=== PATIENT | female | born 1975 | race Caucasian/White ===

== ENCOUNTER 2022-04-30 13:06 | Emergency (ER) | payer OTHER, SELFPAY ==
[2022-04-30] VITALS (51 sets, daily range): BP systolic 102–146; BP diastolic 62–94; PULSE 97–124; RESP 18–21; TEMP 36.6–37.4; O2SAT 92–100; BMI 17.2
--- NOTE | 2022-04-30 14:54 | ED_ITS ---
HPI - General Adult General Time Seen by Provider: 14:54 <Sandy Braga MD - Last Filed: 04/30/22 21:17> Date Seen: 04/30/22 <Sandy Braga MD - Last Filed: 04/30/22 21:17> Chief complaint: Abdominal Pain <Sandy Braga MD - Last Filed: 04/30/22 21:17> Stated complaint: Abdominal pain <Sandy Braga MD - Last Filed: 04/30/22 21:17> Time Seen by Provider: 04/30/22 14:46 <Sandy Braga MD - Last Filed: 04/30/22 21:17> Source: patient and RN notes reviewed <Sandy Braga MD - Last Filed: 04/30/22 21:17> Mode of arrival: ambulatory <Sandy Braga MD - Last Filed: 04/30/22 21:17> Limitations: no limitations <Sandy Braga MD - Last Filed: 04/30/22 21:17> History of Present Illness HPI narrative: This 46-year-old female is here with her significant other with abdominal pain. Patient has liver cancer, has been off chemotherapy for a couple of weeks awaiting possible entrance to a trial. Her bilirubin reportedly was starting to elevate and she was becoming jaundice. She had a stent placed via ERCP with improvement of the jaundice at [facility]. The procedure reportedly went very well, only took 15 minutes. Since that time she has had increasing right abdominal pain. She complains of pain with breathing on that side. Initially she was feeling a bit better after the procedure, appetite was better. Now she has had some more nausea. She has not had any fevers but since chemotherapy is started, do think that maybe she has precipitated menopause as she does have hot flashes and night sweats. This predated the stent placement. She contacted her Oncology and they recommended going to the ER to get imaging. They stated it would take them a few days to get her in for imaging per their report. She tried some tramadol at home which she had for pain but does not typically use, last use at 10:15 a.m. and barely took the edge off. She has had some emesis with fentanyl and dilaudid postprocedure. She is not a smoker but was exposed to secondhand smoke through her dad. Prior to being diagnosed with liver cancer she was an avid runner. She is tearful talking about this, states she is really lead a healthy life. She states she really only can comfortably lying her left side. Since the procedure was done, she has not been able to lie on her right side anymore. She states it hurts with breathing but she is not necessarily short of breath. It hurts on the right side with breathing. She has become more nauseated since the procedure, no vomiting. Originally felt like her appetite improved when it was 1st done. <Sandy Braga MD - Last Filed: 04/30/22 21:17> Related Data Allergies/adverse reactions: Allergies Allergy/AdvReac Type Severity Reaction Status Date / Time amoxicillin AdvReac Severe Anaphylaxis Verified 04/30/22 17:26 <Sandy Braga MD - Last Filed: 04/30/22 21:17> Review of Systems Status of ROS: Reports: 10 or more systems reviewed and unremarkable except as noted in History and below <Sandy Braga MD - Last Filed: 0 04/30/22 21:17> Exam Const: Vital Signs, click to edit/add: Vital Signs - 24 hr 05/01/22 02:00 05/01/22 02:02 05/01/22 02:15 Pulse Rate 103 H 100 96 Blood Pressure 122/78 Pulse Oximetry 97 98 96 05/01/22 02:30 05/01/22 02:45 05/01/22 03:00 Pulse Rate 95 101 H 94 Blood Pressure Pulse Oximetry 97 95 96 05/01/22 03:02 05/01/22 03:15 05/01/22 03:30 Pulse Rate 94 95 96 Blood Pressure 116/72 Pulse Oximetry 97 97 98 05/01/22 03:45 05/01/22 04:00 05/01/22 04:01 Pulse Rate 102 H 100 100 Blood Pressure 123/76 Pulse Oximetry 97 99 99 05/01/22 04:15 05/01/22 04:30 05/01/22 04:45 Pulse Rate 102 H 101 H 100 Blood Pressure Pulse Oximetry 98 99 99 05/01/22 05:00 05/01/22 05:01 05/01/22 05:15 Pulse Rate 106 H 105 H 102 H Blood Pressure 111/65 Pulse Oximetry 100 99 99 05/01/22 05:30 05/01/22 05:45 05/01/22 06:00 Pulse Rate 101 H 101 H 100 Blood Pressure Pulse Oximetry 97 96 97 05/01/22 06:01 05/01/22 06:15 05/01/22 06:28 Pulse Rate 99 109 H 106 H Blood Pressure 105/57 L 135/79 Pulse Oximetry 97 98 100 05/01/22 06:30 05/01/22 06:45 05/01/22 07:00 Pulse Rate 105 H 107 H 98 Blood Pressure Pulse Oximetry 100 97 95 05/01/22 07:02 05/01/22 07:15 05/01/22 07:30 Pulse Rate 98 96 96 Blood Pressure 112/68 Pulse Oximetry 95 95 95 05/01/22 07:45 05/01/22 08:00 05/01/22 08:02 Pulse Rate 92 95 94 Blood Pressure 103/64 Pulse Oximetry 96 96 96 05/01/22 08:15 05/01/22 08:30 05/01/22 08:45 Pulse Rate 104 H 92 94 Blood Pressure Pulse Oximetry 96 97 97 05/01/22 09:00 05/01/22 09:01 05/01/22 09:15 Pulse Rate 98 103 H 109 H Blood Pressure 117/79 Pulse Oximetry 96 99 100 05/01/22 09:36 05/01/22 09:45 05/01/22 10:00 Pulse Rate 98 97 101 H Blood Pressure Pulse Oximetry 99 97 98 05/01/22 10:03 05/01/22 10:29 05/01/22 10:30 Pulse Rate 105 H 98 Blood Pressure 140/81 H Pulse Oximetry 100 100 05/01/22 10:45 05/01/22 11:00 05/01/22 11:01 Pulse Rate 97 101 H 104 H Blood Pressure 124/77 Pulse Oximetry 99 99 94 05/01/22 11:15 05/01/22 11:30 05/01/22 11:45 Pulse Rate 106 H 100 101 H Blood Pressure Pulse Oximetry 100 98 98 05/01/22 12:00 05/01/22 12:02 05/01/22 12:22 Pulse Rate 103 H 103 H 109 H Blood Pressure 111/66 Pulse Oximetry 98 98 99 05/01/22 12:30 Pulse Rate 106 H Blood Pressure Pulse Oximetry 96 <Sandy Braga MD - Last Filed: 04/30/22 21:17> Vital Signs, click to edit/add: Vital Signs - 24 hr 05/01/22 02:00 05/01/22 02:02 05/01/22 02:15 Pulse Rate 103 H 100 96 Blood Pressure 122/78 Pulse Oximetry 97 98 96 05/01/22 02:30 05/01/22 02:45 05/01/22 03:00 Pulse Rate 95 101 H 94 Blood Pressure Pulse Oximetry 97 95 96 05/01/22 03:02 05/01/22 03:15 05/01/22 03:30 Pulse Rate 94 95 96 Blood Pressure 116/72 Pulse Oximetry 97 97 98 05/01/22 03:45 05/01/22 04:00 05/01/22 04:01 Pulse Rate 102 H 100 100 Blood Pressure 123/76 Pulse Oximetry 97 99 99 05/01/22 04:15 05/01/22 04:30 05/01/22 04:45 Pulse Rate 102 H 101 H 100 Blood Pressure Pulse Oximetry 98 99 99 05/01/22 05:00 05/01/22 05:01 05/01/22 05:15 Pulse Rate 106 H 105 H 102 H Blood Pressure 111/65 Pulse Oximetry 100 99 99 05/01/22 05:30 05/01/22 05:45 05/01/22 06:00 Pulse Rate 101 H 101 H 100 Blood Pressure Pulse Oximetry 97 96 97 05/01/22 06:01 05/01/22 06:15 05/01/22 06:28 Pulse Rate 99 109 H 106 H Blood Pressure 105/57 L 135/79 Pulse Oximetry 97 98 100 05/01/22 06:30 05/01/22 06:45 05/01/22 07:00 Pulse Rate 105 H 107 H 98 Blood Pressure Pulse Oximetry 100 97 95 05/01/22 07:02 05/01/22 07:15 05/01/22 07:30 Pulse Rate 98 96 96 Blood Pressure 112/68 Pulse Oximetry 95 95 95 05/01/22 07:45 05/01/22 08:00 05/01/22 08:02 Pulse Rate 92 95 94 Blood Pressure 103/64 Pulse Oximetry 96 96 96 05/01/22 08:15 05/01/22 08:30 05/01/22 08:45 Pulse Rate 104 H 92 94 Blood Pressure Pulse Oximetry 96 97 97 05/01/22 09:00 05/01/22 09:01 05/01/22 09:15 Pulse Rate 98 103 H 109 H Blood Pressure 117/79 Pulse Oximetry 96 99 100 05/01/22 09:36 05/01/22 09:45 05/01/22 10:00 Pulse Rate 98 97 101 H Blood Pressure Pulse Oximetry 99 97 98 05/01/22 10:03 05/01/22 10:29 05/01/22 10:30 Pulse Rate 105 H 98 Blood Pressure 140/81 H Pulse Oximetry 100 100 05/01/22 10:45 05/01/22 11:00 05/01/22 11:01 Pulse Rate 97 101 H 104 H Blood Pressure 124/77 Pulse Oximetry 99 99 94 05/01/22 11:15 05/01/22 11:30 05/01/22 11:45 Pulse Rate 106 H 100 101 H Blood Pressure Pulse Oximetry 100 98 98 05/01/22 12:00 05/01/22 12:02 05/01/22 12:22 Pulse Rate 103 H 103 H 109 H Blood Pressure 111/66 Pulse Oximetry 98 98 99 05/01/22 12:30 Pulse Rate 106 H Blood Pressure Pulse Oximetry 96 <Justin Sorenson MD - Last Filed: 05/04/22 00:58> Vital Signs, click to edit/add: Vital Signs - 24 hr 05/01/22 02:00 05/01/22 02:02 05/01/22 02:15 Pulse Rate 103 H 100 96 Blood Pressure 122/78 Pulse Oximetry 97 98 96 05/01/22 02:30 05/01/22 02:45 05/01/22 03:00 Pulse Rate 95 101 H 94 Blood Pressure Pulse Oximetry 97 95 96 05/01/22 03:02 05/01/22 03:15 05/01/22 03:30 Pulse Rate 94 95 96 Blood Pressure 116/72 Pulse Oximetry 97 97 98 05/01/22 03:45 01/13/23 04:00 05/01/22 04:01 Pulse Rate 102 H 100 100 Blood Pressure 123/76 Pulse Oximetry 97 99 99 05/01/22 04:15 05/01/22 04:30 05/01/22 04:45 Pulse Rate 102 H 101 H 100 Blood Pressure Pulse Oximetry 98 99 99 05/01/22 05:00 05/01/22 05:01 05/01/22 05:15 Pulse Rate 106 H 105 H 102 H Blood Pressure 111/65 Pulse Oximetry 100 99 99 05/01/22 05:30 05/01/22 05:45 05/01/22 06:00 Pulse Rate 101 H 101 H 100 Blood Pressure Pulse Oximetry 97 96 97 05/01/22 06:01 05/01/22 06:15 05/01/22 06:28 Pulse Rate 99 109 H 106 H Blood Pressure 105/57 L 135/79 Pulse Oximetry 97 98 100 05/01/22 06:30 05/01/22 06:45 05/01/22 07:00 Pulse Rate 105 H 107 H 98 Blood Pressure Pulse Oximetry 100 97 95 05/01/22 07:02 05/01/22 07:15 05/01/22 07:30 Pulse Rate 98 96 96 Blood Pressure 112/68 Pulse Oximetry 95 95 95 05/01/22 07:45 05/01/22 08:00 05/01/22 08:02 Pulse Rate 92 95 94 Blood Pressure 103/64 Pulse Oximetry 96 96 96 05/01/22 08:15 05/01/22 08:30 05/01/22 08:45 Pulse Rate 104 H 92 94 Blood Pressure Pulse Oximetry 96 97 97 05/01/22 09:00 05/01/22 09:01 05/01/22 09:15 Pulse Rate 98 103 H 109 H Blood Pressure 117/79 Pulse Oximetry 96 99 100 05/01/22 09:36 05/01/22 09:45 05/01/22 10:00 Pulse Rate 98 97 101 H Blood Pressure Pulse Oximetry 99 97 98 05/01/22 10:03 05/01/22 10:29 05/01/22 10:30 Pulse Rate 105 H 98 Blood Pressure 140/81 H Pulse Oximetry 100 100 05/01/22 10:45 05/01/22 11:00 05/01/22 11:01 Pulse Rate 97 101 H 104 H Blood Pressure 124/77 Pulse Oximetry 99 99 94 05/01/22 11:15 05/01/22 11:30 05/01/22 11:45 Pulse Rate 106 H 100 101 H Blood Pressure Pulse Oximetry 100 98 98 05/01/22 12:00 05/01/22 12:02 05/01/22 12:22 Pulse Rate 103 H 103 H 109 H Blood Pressure 111/66 Pulse Oximetry 98 98 99 05/01/22 12:30 Pulse Rate 106 H Blood Pressure Pulse Oximetry 96 <Kayode Alvarado MD - Last Filed: 05/02/22 01:51> Vital Signs, click to edit/add: Vital Signs - 24 hr 05/01/22 02:00 05/01/22 02:02 05/01/22 02:15 Pulse Rate 103 H 100 96 Blood Pressure 122/78 Pulse Oximetry 97 98 96 05/01/22 02:30 05/01/22 02:45 05/01/22 03:00 Pulse Rate 95 101 H 94 Blood Pressure Pulse Oximetry 97 95 96 05/01/22 03:02 05/01/22 03:15 05/01/22 03:30 Pulse Rate 94 95 96 Blood Pressure 116/72 Pulse Oximetry 97 97 98 05/01/22 03:45 05/01/22 04:00 05/01/22 04:01 Pulse Rate 102 H 100 100 Blood Pressure 123/76 Pulse Oximetry 97 99 99 05/01/22 04:15 05/01/22 04:30 05/01/22 04:45 Pulse Rate 102 H 101 H 100 Blood Pressure Pulse Oximetry 98 99 99 05/01/22 05:00 05/01/22 05:01 05/01/22 05:15 Pulse Rate 106 H 105 H 102 H Blood Pressure 111/65 Pulse Oximetry 100 99 99 05/01/22 05:30 05/01/22 05:45 05/01/22 06:00 Pulse Rate 101 H 101 H 100 Blood Pressure Pulse Oximetry 97 96 97 05/01/22 06:01 05/01/22 06:15 05/01/22 06:28 Pulse Rate 99 109 H 106 H Blood Pressure 105/57 L 135/79 Pulse Oximetry 97 98 100 05/01/22 06:30 05/01/22 06:45 05/01/22 07:00 Pulse Rate 105 H 107 H 98 Blood Pressure Pulse Oximetry 100 97 95 05/01/22 07:02 05/01/22 07:15 05/01/22 07:30 Pulse Rate 98 96 96 Blood Pressure 112/68 Pulse Oximetry 95 95 95 05/01/22 07:45 05/01/22 08:00 05/01/22 08:02 Pulse Rate 92 95 94 Blood Pressure 103/64 Pulse Oximetry 96 96 96 05/01/22 08:15 05/01/22 08:30 05/01/22 08:45 Pulse Rate 104 H 92 94 Blood Pressure Pulse Oximetry 96 97 97 05/01/22 09:00 05/01/22 09:01 05/01/22 09:15 Pulse Rate 98 103 H 109 H Blood Pressure 117/79 Pulse Oximetry 96 99 100 05/01/22 09:36 05/01/22 09:45 05/01/22 10:00 Pulse Rate 98 97 101 H Blood Pressure Pulse Oximetry 99 97 98 05/01/22 10:03 05/01/22 10:29 05/01/22 10:30 Pulse Rate 105 H 98 Blood Pressure 140/81 H Pulse Oximetry 100 100 05/01/22 10:45 05/01/22 11:00 05/01/22 11:01 Pulse Rate 97 101 H 104 H Blood Pressure 124/77 Pulse Oximetry 99 99 94 05/01/22 11:15 05/01/22 11:30 05/01/22 11:45 Pulse Rate 106 H 100 101 H Blood Pressure Pulse Oximetry 100 98 98 05/01/22 12:00 05/01/22 12:02 05/01/22 12:22 Pulse Rate 103 H 103 H 109 H Blood Pressure 111/66 Pulse Oximetry 98 98 99 05/01/22 12:30 Pulse Rate 106 H Blood Pressure Pulse Oximetry 96 <Chanel Krishnamurthy MD - Last Filed: 05/01/22 14:20> Documenting provider has reviewed patient's vital signs: yes <Sandy Braga MD - Last Filed: 04/30/22 21:17> Common normals: no apparent distress, oriented x3, no limitations and alert <Sandy Braga MD - Last Filed: 04/30/22 21:17> General appearance: cooperative, comfortable and frail appearing <Sandy Braga MD - Last Filed: 04/30/22 21:17> Nutritional appearance: thin <Sandy Braga MD - Last Filed: 04/30/22 21:17> HENMT: Common normals: normocephalic, head/scalp atraumatic, hearing grossly normal bilaterally and external ears normal <Sandy Braga MD - Last Filed: 04/30/22 21:17> Head and scalp: normocephalic and atraumatic <Sandy Braga MD - Last Filed: 04/30/22 21:17> External ear: external ears normal <Sandy Braga MD - Last Filed: 04/30/22 21:17> Eye: Common normals: PERRL, EOMs intact bilaterally and conjunctivae normal <Sandy Braga MD - Last Filed: 04/30/22 21:17> Conjunctiva: conjunctiva(e) normal <Sandy Braga MD - Last Filed: 04/30/22 21:17> Pupil: PERRL <Sandy Braga MD - Last Filed: 04/30/22 21:17> Other: Lighting was not great in the room, 1 bank of lights were not on but I do wonder if there is maybe a little scleral icterus. <Sandy Braga MD - Last Filed: 04/30/22 21:17> Neck & C-Spine: Common normals: full ROM, no lymphadenopathy, supple, no meningeal signs, no JVD and thyroid normal <Sandy Braga MD - Last Filed: 04/30/22 21:17> Thyroid: thyroid normal <Sandy Braga MD - Last Filed: 04/30/22 21:17> Resp: Common normals: normal respiratory effort, no retractions, no use of accessory muscles and clear to auscultation bilaterally <Sandy Paul MD - Last Filed: 04/30/22 21:17> Auscultation: clear to auscultation bilaterally <Sandy Braga MD - Last Filed: 04/30/22 21:17> Cardio: Common normals: no JVD, regular rate, regular rhythm, S1 normal heart sound, S2 normal heart sound, no gallops, no clicks and no murmurs <Sandy Braga MD - Last Filed: 04/30/22 21:17> Rate: regular rate <Sandy Braga MD - Last Filed: 04/30/22 21:17> Rhythm: regular rhythm <Sandy Braga MD - Last Filed: 04/30/22 21:17> Heart sounds: S1 normal and S2 normal <Sandy Braga MD - Last Filed: 04/30/22 21:17> GI: Common normals: Normal to inspection, nondistended, normoactive bowel sounds present and soft to palpation <Sandy Braga MD - Last Filed: 04/30/22 21:17> Palpation: soft <Sandy Braga MD - Last Filed: 04/30/22 21:17> Other: Has definite right upper quadrant to epigastric abdominal pain on palpation. Could not get her to lie flat for the exam so this is done somewhat with her rolled up on her left side. <Sandy Braga MD - Last Filed: 04/30/22 21:17> Neuro: Common normals: oriented x3 <Sandy Braga MD - Last Filed: 04/30/22 21:17> Sensorium/orientation: alert <Sandy Braga MD - Last Filed: 04/30/22 21:17> Meningeal signs: no meningeal signs <Sandy Braga MD - Last Filed: 04/30/22 21:17> Course Course Hospital Course: Reviewed with them that we will try some IV morphine, treat for nausea with Zofran. Will be ordering a CT for imaging purposes, will use IV contrast. I am going to do her chest abdomen pelvis, make sure that there is nothing above the diaphragm such as a pleural effusion developing. I have had some patients with some mild type discomfort or pain post stent placement but certainly not severe and worsening. Does not sound like she is exhibiting any infectious etiology as a cause for her pain but that will be considered. Will get a full complement of labs. We will see how she responds to the morphine. <Sandy Braga MD - Last Filed: 04/30/22 21:17> Reevaluation(s) Reevaluation #1: Have brought a copy of patient's labs into her. Unfortunately her bilirubin is up to 5.3. She states it was normal at 2 just a few days ago. We are waiting her CT to be read. She felt some relief with the morphine but the pain is creeping back up. Will order 2 more mg IV morphine. They have many questions why the bilirubin might be up in why she might be having pain. Re viewed with them that this could be malfunction of the stent it could be other etiologies from her cancer. We absolutely need to wait for her CT to be read by Radiology, I will ask that it be pushed through to [facility] as well. <Sandy Braga MD - Last Filed: 04/30/22 21:17> Time: 17:09 <Sandy Braga MD - Last Filed: 04/30/22 21:17> Reevaluation #2: Nursing reported patient's pain is back, she had recently received 4 mg IV morphine due to increased pain. She slept for about an hour and then woke up. We will give her a dose of Tylenol as she requested, have ordered p.r.n. dilaudid from 0.2 mg to 0.5 mg q.2 hours p.r.n. pain. We will address any nausea should it come up. IA contacted [facility] at 7:06 p.m. krishna, have not gotten a call back yet. Will be touching base with their transfer center shortly. Patient's nurse has also just reported that patient is feeling shaky, temp is 99.3? F now. I am on hold awaiting to talk to the transfer center at [facility]. Will obtain 2 blood cultures, I will get a procalcitonin. I see patient is allergic to amoxicillin with anaphylax, will consider different antibiotic possibly imipenem. Need to speak to Caspar regarding her increasing bilirubin level, abnormal gallbladder on her CT. <Sandy Braga MD - Last Filed: 04/30/22 21:17> Time: 20:14 <Sandy Braga MD - Last Filed: 04/30/22 21:17> Reevaluation #3: Have updated patient and her , her CT is concerning for her gallbladder but does not really explain to me why the bilirubin is escalating. She is feeling a bit more comfortable after having a dose of Tylenol and IV Dilaudid. She is worried that were just going to send her home to deal with the pain. I reviewed with her that that is not our plan here. We are awaiting the surgeon to review her CT and to guide us further. <Sandy Braga MD - Last Filed: 04/30/22 21:17> Time: 20:52 <Sandy Braga MD - Last Filed: 04/30/22 21:17> Additional Reevaluation(s): 11:07 p.m. contacted male was no bed has been assigned yet and there were to call us with bed assignment at around 10:30 p.m.. Advise they are on divert and no bed plan has been made yet. <Justin Sorenson MD - Last Filed: 05/04/22 00:58> Consultations Consultation #1: My initial call to the transfer center at [facility] was at 7:06 p.m.. I did check back at 8:19 p.m.. Received a phone call back from Kip gill RN that I was working with at 8:32 a.m.. The surgeon that she was waiting for had been in OR, she thought it would be shortly before they were able to look at the CT report. At 9:03 a.m. p.m., suited call back. She states that as expected, many people were involved behind the scenes included but not limited to Oncology, surgery, hepatobiliary surgery. They accept the patient in transfer. We will have to wait for bed placement. I am going to initiate imipenem for antibiotic coverage. She will likely be nonsurgical as far as her gallbladder but they will need to discuss this with her further and go over this with her and her . <Sandy Braga MD - Last Filed: 04/30/22 21:17> My initial call to the transfer center at [facility] was at 7:06 p.m.. I did check back at 8:19 p.m.. Received a phone call back from Leila the RN that I was working with at 8:32 a.m.. The surgeon that she was waiting for had been in OR, she thought it would be shortly before they were able to look at the CT report. At 9:03 a.m. p.m., suited call back. She states that as expected, many people were involved behind the scenes included but not limited to Oncology, surgery, hepatobiliary surgery. They accept the patient in transfer. We will have to wait for bed placement. I am going to initiate imipenem for antibiotic coverage. She will likely be nonsurgical as far as her gallbladder but they will need to discuss this with her further and go over this with her and her . <Justin Sorenson MD - Last Filed: 05/04/22 00:58> Time: 21:08 <Sandy Braga MD - Last Filed: 04/30/22 21:17> Vital Signs Vital signs: Initial Vital Signs Temperature 98.6 F 04/30/22 13:11 Temperature Source Oral 04/30/22 13:11 Pulse Rate 117 H 04/30/22 13:11 Pulse Rhythm 04/30/22 13:11 Pulse Strength 3+ Normal 04/30/22 13:11 Respiratory Rate 21 04/30/22 13:11 Blood Pressure 129/80 04/30/22 13:11 Blood Pressure Mean 96 04/30/22 13:11 Blood Pressure Position Sitting 04/30/22 13:11 Pulse Oximetry 99 04/30/22 13:11 Oxygen Delivery Method 04/30/22 13:11 Vital Signs Temperature 98.6 F 04/30/22 13:11 Pulse Rate 117 H 04/30/22 13:11 Respiratory Rate 21 04/30/22 13:11 Blood Pressure 129/80 04/30/22 13:11 Pulse Oximetry 99 04/30/22 13:11 Oxygen Delivery Method 04/30/22 13:11 Temperature 97.8 F 04/30/22 22:00 Pulse Rate 106 H 05/01/22 12:30 Respiratory Rate 18 04/30/22 22:00 Blood Pressure 111/66 05/01/22 12:02 Pulse Oximetry 96 05/01/22 12:30 Oxygen Delivery Method 04/30/22 13:11 <Sandy Braga MD - Last Filed: 04/30/22 21:17> Initial Vital Signs Temperature 98.6 F 04/30/22 13:11 Temperature Source Oral 04/30/22 13:11 Pulse Rate 117 H 04/30/22 13:11 Pulse Rhythm 04/30/22 13:11 Pulse Strength 3+ Normal 04/30/22 13:11 Respiratory Rate 21 04/30/22 13:11 Blood Pressure 129/80 04/30/22 13:11 Blood Pressure Mean 96 04/30/22 13:11 Blood Pressure Position Sitting 04/30/22 13:11 Pulse Oximetry 99 04/30/22 13:11 Oxygen Delivery Method 04/30/22 13:11 Vital Signs Temperature 98.6 F 04/30/22 13:11 Pulse Rate 117 H 04/30/22 13:11 Respiratory Rate 21 04/30/22 13:11 Blood Pressure 129/80 04/30/22 13:11 Pulse Oximetry 99 04/30/22 13:11 Oxygen Delivery Method 04/30/22 13:11 Temperature 97.8 F 04/30/22 22:00 Pulse Rate 106 H 05/01/22 12:30 Respiratory Rate 18 04/30/22 22:00 Blood Pressure 111/66 05/01/22 12:02 Pulse Oximetry 96 05/01/22 12:30 Oxygen Delivery Method 04/30/22 13:11 <Justin Sorenson MD - Last Filed: 05/04/22 00:58> Initial Vital Signs Temperature 98.6 F 04/30/22 13:11 Temperature Source Oral 04/30/22 13:11 Pulse Rate 117 H 04/30/22 13:11 Pulse Rhythm 04/30/22 13:11 Pulse Strength 3+ Normal 04/30/22 13:11 Respiratory Rate 21 04/30/22 13:11 Blood Pressure 129/80 04/30/22 13:11 Blood Pressure Mean 96 04/30/22 13:11 Blood Pressure Position Sitting 04/30/22 13:11 Pulse Oximetry 99 04/30/22 13:11 Oxygen Delivery Method 04/30/22 13:11 Vital Signs Temperature 98.6 F 04/30/22 13:11 Pulse Rate 117 H 04/30/22 13:11 Respiratory Rate 21 04/30/22 13:11 Blood Pressure 129/80 04/30/22 13:11 Pulse Oximetry 99 04/30/22 13:11 Oxygen Delivery Method 04/30/22 13:11 Temperature 97.8 F 04/30/22 22:00 Pulse Rate 106 H 05/01/22 12:30 Respiratory Rate 18 04/30/22 22:00 Blood Pressure 111/66 05/01/22 12:02 Pulse Oximetry 96 05/01/22 12:30 Oxygen Delivery Method 04/30/22 13:11 <Kayode Alvarado MD - Last Filed: 05/02/22 01:51> Initial Vital Signs Temperature 98.6 F 04/30/22 13:11 Temperature Source Oral 04/30/22 13:11 Pulse Rate 117 H 04/30/22 13:11 Pulse Rhythm 04/30/22 13:11 Pulse Strength 3+ Normal 04/30/22 13:11 Respiratory Rate 04/30/22 13:11 Blood Pressure 129/80 04/30/22 13:11 Blood Pressure Mean 96 04/30/22 13:11 Blood Pressure Position Sitting 04/30/22 13:11 Pulse Oximetry 99 04/30/22 13:11 Oxygen Delivery Method 04/30/22 13:11 Vital Signs Temperature 98.6 F 04/30/22 13:11 Pulse Rate 117 H 04/30/22 13:11 Respiratory Rate 21 04/30/22 13:11 Blood Pressure 129/80 04/30/22 13:11 Pulse Oximetry 99 04/30/22 13:11 Oxygen Delivery Method 04/30/22 13:11 Temperature 97.8 F 04/30/22 22:00 Pulse Rate 106 H 05/01/22 12:30 Respiratory Rate 18 04/30/22 22:00 Blood Pressure 111/66 05/01/22 12:02 Pulse Oximetry 96 05/01/22 12:30 Oxygen Delivery Method 04/30/22 13:11 <Chanel Krishnamurthy MD - Last Filed: 05/01/22 14:20> Medical Decision Making MDM Narrative Medical decision making narrative: Dr. Alvarado: Received Ms. Fadi Byrnes in handoff at change of shift in the morning. She is currently sleeping per report. I have reviewed records. Abdominal pain with concern of cholecystitis and elevated bilirubin in the setting of biliary cancer and recent ERCP. Potential sepsis. Is due for repeat antibiotic dosing. This has been ordered. Did consult with pharmacy for appropriate dosing. Pending transport to [facility] where she has been accepted. 1230 hours: Patient's chart and notes are reviewed by myself. Currently awaiting go ahead for transfer room for [facility] patient has reportedly been accepted for transfer. Patient presented yesterday at which time bilirubin was increased from normal 48 hours ago to 5.3. Also noted was alk-phos at 1248 and CRP at 14.5. Patient has been treated with chemotherapy for biliary cancer and has recently had ERCP and stent placement. Patient has had increasing pain since that time. CT of the abdomen showed possibility of cholecystitis with cholelithiasis and sludge noted. Given patient history [facility] was consulted and did accept patient. Patient had episode of chills and shaking and temp to 99.3 along with tachycardia. Sepsis was considered although patient has had no episodes of hypotension or fever over 100.4. Blood cultures were done and pro calcitonin was 0.51 (normal is less than 0.50). Primaxin was given at approximately 2300 hours on the evening of 04/30/2022 and again at 0900 hours on 05/01/22. At this time patient has been accepted for transfer by [facility]. I spoke with Dr. Bladimir loredo. Patient will be going to medical-surgical floor. ALS ground transport by [facility] pending. I do note that patient has normal saline with potassium at this time. Potassium yesterday upon presentation was 4.1 and therefore we will change to normal saline at 100 during transport. <Kayode Alvarado MD - Last Filed: 05/02/22 01:51> Dr. Alvarado: Received Ms. Fadi Byrnes in handoff at change of shift in the morning. She is currently sleeping per report. I have reviewed records. Abdominal pain with concern of cholecystitis and elevated bilirubin in the setting of biliary cancer and recent ERCP. Potential sepsis. Is due for repeat antibiotic dosing. This has been ordered. Pending transport to [facility] where she has been accepted. 1230 hours: Patient's chart and notes are reviewed by myself. Currently awaiting go ahead for transfer room for [facility] patient has reportedly been accepted for transfer. Patient presented yesterday at which time bilirubin was increased from normal 48 hours ago to 5.3. Also noted was alk-phos at 1248 and CRP at 14.5. Patient has been treated with chemotherapy for biliary cancer and has recently had ERCP and stent placement. Patient has had increasing pain since that time. CT of the abdomen showed possibility of cholecystitis with cholelithiasis and sludge noted. Given patient history [facility] was consulted and did accept patient. Patient had episode of chills and shaking and temp to 99.3 along with tachycardia. Sepsis was considered although patient has had no episodes of hypotension or fever over 100.4. Blood cultures were done and pro calcitonin was 0.51 (normal is less than 0.50). Primaxin was given at approximately 2300 hours on the evening of 04/30/2022 and again at 0900 hours on 05/01/22. At this time patient has been accepted for transfer by [facility]. I spoke with Dr. Bladimir loredo. Patient will be going to medical-surgical floor. ALS ground transport by [facility] pending. I do note that patient has normal saline with potassium at this time. Potassium yesterday upon presentation was 4.1 and therefore we will change to normal saline at 100 during transport. <Chanel Krishnamurthy MD - Last Filed: 05/01/22 14:20> Lab Data Lab results reviewed: Yes I reviewed the patient's lab results <Sandy Braga MD - [facility] Filed: 04/30/22 21:17> Labs: Lab Results 04/30/22 04/30/22 04/30/22 Range/Units 15:35 15:35 15:35 WBC 8.82 (4.50-11.00) K/uL RBC 3.63 L (4.00-5.20) m/uL Hgb 10.0 L (12.0-16.0) gm/dL Hct 31.0 L (33.0-51.0) % MCV 85 (80-100) fL MCH 28 (26-34) pg MCHC 32 (32-36) gm/dL RDW Coeff of Honorio 14.7 (11.5-15.5) % Plt Count 138 L (140-440) K/uL Neut % (Auto) 90.9 H (42.0-72.0) % Lymph % (Auto) 2.2 L (20-44) % Knott % (Auto) 6.7 (0.0-11.0) % Eos % (Auto) 0.0 (0.0-7.0) % Baso % (Auto) 0.1 (0.0-3.0) % Neut # (Auto) 8.00 H (1.7-7.0) K/uL Lymph # (Auto) 0.20 L (0.90-2.90) K/uL Knott # (Auto) 0.60 (0.00-0.90) K/UL Eos # (Auto) 0.00 (0.00-0.50) K/uL Baso # (Auto) 0.01 (0.00-0.30) K/uL INR 1.35 H (0.91-1.10) APTT 38 H (23-33) Seconds Sodium 134 L (135-149) mmol/L Potassium 4.1 (3.6-5.1) mmol/L Chloride 100 (96-114) mmol/L Carbon Dioxide 29 (20-32) mmol/L BUN 15 (5-24) mg/dL Creatinine 0.3 L (0.5-1.5) mg/dL Estimated Creat Clear 201.99 Estimated GFR 131 ml/min Glucose 156 H (60-115) mg/dL Lactate (0.5-1.9) mmol/L Calcium 9.5 (8.4-10.6) mg/dL Total Bilirubin 5.3 H (0.1-1.5) mg/dL AST 73 H (12-35) U/L ALT 93 H (4-35) U/L Alkaline Phosphatase 1248 H (40-150) U/L C-Reactive Protein 14.5 H (0.5-1.0) mg/dL Total Protein 7.4 (6.0-8.3) g/dL Albumin 3.7 (3.3-5.0) g/dL Lipase 33 (23-300) U/L Procalcitonin (<0.50) ng/mL SARS-CoV-2 (PCR) (Negative) Influenza Type A (PCR) (Negative) Influenza Type B (PCR) (Negative) RSV (PCR) (Negative) 04/30/22 04/30/22 04/30/22 Range/Units 15:35 20:19 20:25 WBC (4.50-11.00) K/uL RBC (4.00-5.20) m/uL Hgb (12.0-16.0) gm/dL Hct (33.0-51.0) % MCV (80-100) fL MCH (26-34) pg MCHC (32-36) gm/dL RDW Coeff of Honorio (11.5-15.5) % Plt Count (140-440) K/uL Neut % (Auto) (42.0-72.0) % Lymph % (Auto) (20-44) % Knott % (Auto) (0.0-11.0) % Eos % (Auto) (0.0-7.0) % Baso % (Auto) (0.0-3.0) % Neut # (Auto) (1.7-7.0) K/uL Lymph # (Auto) (0.90-2.90) K/uL Knott # (Auto) (0.00-0.90) K/UL Eos # (Auto) (0.00-0.50) K/uL Baso # (Auto) (0.00-0.30) K/uL INR (0.91-1.10) APTT (23-33) Seconds Sodium (135-149) mmol/L Potassium (3.6-5.1) mmol/L Chloride (96-114) mmol/L Carbon Dioxide (20-32) mmol/L BUN (5-24) mg/dL Creatinine (0.5-1.5) mg/dL Estimated Creat Clear Estimated GFR ml/min Glucose (60-115) mg/dL Lactate 0.6 (0.5-1.9) mmol/L Calcium (8.4-10.6) mg/dL Total Bilirubin (0.1-1.5) mg/dL AST (12-35) U/L ALT (4-35) U/L Alkaline Phosphatase (40-150) U/L C-Reactive Protein (0.5-1.0) mg/dL Total Protein (6.0-8.3) g/dL Albumin (3.3-5.0) g/dL Lipase (23-300) U/L Procalcitonin 0.51 H (<0.50) ng/mL SARS-CoV-2 (PCR) Negative SARS-CoV-2 (Negative) Influenza Type A (PCR) Negative PCR FLU A (Negative) Influenza Type B (PCR) Negative PCR FLU B (Negative) RSV (PCR) Negative PCR RSV (Negative) <Sandy Braga MD - Last Filed: 04/30/22 21:17> Lab Results 04/30/22 04/30/22 04/30/22 Range/Units 15:35 15:35 15:35 WBC 8.82 (4.50-11.00) K/uL RBC 3.63 L (4.00-5.20) m/uL Hgb 10.0 L (12.0-16.0) gm/dL Hct 31.0 L (33.0-51.0) % MCV 85 (80-100) fL MCH 28 (26-34) pg MCHC 32 (32-36) gm/dL RDW Coeff of Honorio 14.7 (11.5-15.5) % Plt Count 138 L (140-440) K/uL Neut % (Auto) 90.9 H (42.0-72.0) % Lymph % (Auto) 2.2 L (20-44) % Knott % (Auto) 6.7 (0.0-11.0) % Eos % (Auto) 0.0 (0.0-7.0) % Baso % (Auto) 0.1 (0.0-3.0) % Neut # (Auto) 8.00 H (1.7-7.0) K/uL Lymph # (Auto) 0.20 L (0.90-2.90) K/uL Knott # (Auto) 0.60 (0.00-0.90) K/UL Eos # (Auto) 0.00 (0.00-0.50) K/uL Baso # (Auto) 0.01 (0.00-0.30) K/uL INR 1.35 H (0.91-1.10) APTT 38 H (23-33) Seconds Sodium 134 L (135-149) mmol/L Potassium 4.1 (3.6-5.1) mmol/L Chloride 100 (96-114) mmol/L Carbon Dioxide 29 (20-32) mmol/L BUN 15 (5-24) mg/dL Creatinine 0.3 L (0.5-1.5) mg/dL Estimated Creat Clear 201.99 Estimated GFR 131 ml/min Glucose 156 H (60-115) mg/dL Lactate (0.5-1.9) mmol/L Calcium 9.5 (8.4-10.6) mg/dL Total Bilirubin 5.3 H (0.1-1.5) mg/dL AST 73 H (12-35) U/L ALT 93 H (4-35) U/L Alkaline Phosphatase 1248 H (40-150) U/L C-Reactive Protein 14.5 H (0.5-1.0) mg/dL Total Protein 7.4 (6.0-8.3) g/dL Albumin 3.7 (3.3-5.0) g/dL Lipase 33 (23-300) U/L Procalcitonin (<0.50) ng/mL SARS-CoV-2 (PCR) (Negative) Influenza Type A (PCR) (Negative) Influenza Type B (PCR) (Negative) RSV (PCR) (Negative) 04/30/22 04/30/22 04/30/22 Range/Units 15:35 20:19 20:25 WBC (4.50-11.00) K/uL RBC (4.00-5.20) m/uL Hgb (12.0-16.0) gm/dL Hct (33.0-51.0) % MCV (80-100) fL MCH (26-34) pg MCHC (32-36) gm/dL RDW Coeff of Honorio (11.5-15.5) % Plt Count (140-440) K/uL Neut % (Auto) (42.0-72.0) % Lymph % (Auto) (20-44) % Knott % (Auto) (0.0-11.0) % Eos % (Auto) (0.0-7.0) % Baso % (Auto) (0.0-3.0) % Neut # (Auto) (1.7-7.0) K/uL Lymph # (Auto) (0.90-2.90) K/uL Knott # (Auto) (0.00-0.90) K/UL Eos # (Auto) (0.00-0.50) K/uL Baso # (Auto) (0.00-0.30) K/uL INR (0.91-1.10) APTT (23-33) Seconds Sodium (135-149) mmol/L Potassium (3.6-5.1) mmol/L Chloride (96-114) mmol/L Carbon Dioxide (20-32) mmol/L BUN (5-24) mg/dL Creatinine (0.5-1.5) mg/dL Estimated Creat Clear Estimated GFR ml/min Glucose (60-115) mg/dL Lactate 0.6 (0.5-1.9) mmol/L Calcium (8.4-10.6) mg/dL Total Bilirubin (0.1-1.5) mg/dL AST (12-35) U/L ALT (4-35) U/L Alkaline Phosphatase (40-150) U/L C-Reactive Protein (0.5-1.0) mg/dL Total Protein (6.0-8.3) g/dL Albumin (3.3-5.0) g/dL Lipase (23-300) U/L Procalcitonin 0.51 H (<0.50) ng/mL SARS-CoV-2 (PCR) Negative SARS-CoV-2 (Negative) Influenza Type A (PCR) Negative PCR FLU A (Negative) Influenza Type B (PCR) Negative PCR FLU B (Negative) RSV (PCR) Negative PCR RSV (Negative) <Justin Sorenson MD - Last Filed: 05/04/22 00:58> Lab Results 04/30/22 04/30/22 04/30/22 Range/Units 15:35 15:35 15:35 WBC 8.82 (4.50-11.00) K/uL RBC 3.63 L (4.00-5.20) m/uL Hgb 10.0 L (12.0-16.0) gm/dL Hct 31.0 L (33.0-51.0) % MCV 85 (80-100) fL MCH 28 (26-34) pg MCHC 32 (32-36) gm/dL RDW Coeff of Honorio 14.7 (11.5-15.5) % Plt Count 138 L (140-440) K/uL Neut % (Auto) 90.9 H (42.0-72.0) % Lymph % (Auto) 2.2 L (20-44) % Knott % (Auto) 6.7 (0.0-11.0) % Eos % (Auto) 0.0 (0.0-7.0) % Baso % (Auto) 0.1 (0.0-3.0) % Neut # (Auto) 8.00 H (1.7-7.0) K/uL Lymph # (Auto) 0.20 L (0.90-2.90) K/uL Knott # (Auto) 0.60 (0.00-0.90) K/UL Eos # (Auto) 0.00 (0.00-0.50) K/uL Baso # (Auto) 0.01 (0.00-0.30) K/uL INR 1.35 H (0.91-1.10) APTT 38 H (23-33) Seconds Sodium 134 L (135-149) mmol/L Potassium 4.1 (3.6-5.1) mmol/L Chloride 100 (96-114) mmol/L Carbon Dioxide 29 (20-32) mmol/L BUN 15 (5-24) mg/dL Creatinine 0.3 L (0.5-1.5) mg/dL Estimated Creat Clear 201.99 Estimated GFR 131 ml/min Glucose 156 H (60-115) mg/dL Lactate (0.5-1.9) mmol/L Calcium 9.5 (8.4-10.6) mg/dL Total Bilirubin 5.3 H (0.1-1.5) mg/dL AST 73 H (12-35) U/L ALT 93 H (4-35) U/L Alkaline Phosphatase 1248 H (40-150) U/L C-Reactive Protein 14.5 H (0.5-1.0) mg/dL Total Protein 7.4 (6.0-8.3) g/dL Albumin 3.7 (3.3-5.0) g/dL Lipase 33 (23-300) U/L Procalcitonin (<0.50) ng/mL SARS-CoV-2 (PCR) (Negative) Influenza Type A (PCR) (Negative) Influenza Type B (PCR) (Negative) RSV (PCR) (Negative) 04/30/22 04/30/22 04/30/22 Range/Units 15:35 20:19 20:25 WBC (4.50-11.00) K/uL RBC (4.00-5.20) m/uL Hgb (12.0-16.0) gm/dL Hct (33.0-51.0) % MCV (80-100) fL MCH (26-34) pg MCHC (32-36) gm/dL RDW Coeff of Honorio (11.5-15.5) % Plt Count (140-440) K/uL Neut % (Auto) (42.0-72.0) % Lymph % (Auto) (20-44) % Knott % (Auto) (0.0-11.0) % Eos % (Auto) (0.0-7.0) % Baso % (Auto) (0.0-3.0) % Neut # (Auto) (1.7-7.0) K/uL Lymph # (Auto) (0.90-2.90) K/uL Knott # (Auto) (0.00-0.90) K/UL Eos # (Auto) (0.00-0.50) K/uL Baso # (Auto) (0.00-0.30) K/uL INR (0.91-1.10) APTT (23-33) Seconds Sodium (135-149) mmol/L Potassium (3.6-5.1) mmol/L Chloride (96-114) mmol/L Carbon Dioxide (20-32) mmol/L BUN (5-24) mg/dL Creatinine (0.5-1.5) mg/dL Estimated Creat Clear Estimated GFR ml/min Glucose (60-115) mg/dL Lactate 0.6 (0.5-1.9) mmol/L Calcium (8.4-10.6) mg/dL Total Bilirubin (0.1-1.5) mg/dL AST (12-35) U/L ALT (4-35) U/L Alkaline Phosphatase (40-150) U/L C-Reactive Protein (0.5-1.0) mg/dL Total Protein (6.0-8.3) g/dL Albumin (3.3-5.0) g/dL Lipase (23-300) U/L Procalcitonin 0.51 H (<0.50) ng/mL SARS-CoV-2 (PCR) Negative SARS-CoV-2 (Negative) Influenza Type A (PCR) Negative PCR FLU A (Negative) Influenza Type B (PCR) Negative PCR FLU B (Negative) RSV (PCR) Negative PCR RSV (Negative) <Kayode Alvarado MD - Last Filed: 05/02/22 01:51> Lab Results 04/30/22 04/30/22 04/30/22 Range/Units 15:35 15:35 15:35 WBC 8.82 (4.50-11.00) K/uL RBC 3.63 L (4.00-5.20) m/uL Hgb 10.0 L (12.0-16.0) gm/dL Hct 31.0 L (33.0-51.0) % MCV 85 (80-100) fL MCH 28 (26-34) pg MCHC 32 (32-36) gm/dL RDW Coeff of Honorio 14.7 (11.5-15.5) % Plt Count 138 L (140-440) K/uL Neut % (Auto) 90.9 H (42.0-72.0) % Lymph % (Auto) 2.2 L (20-44) % Knott % (Auto) 6.7 (0.0-11.0) % Eos % (Auto) 0.0 (0.0-7.0) % Baso % (Auto) 0.1 (0.0-3.0) % Neut # (Auto) 8.00 H (1.7-7.0) K/uL Lymph # (Auto) 0.20 L (0.90-2.90) K/uL Knott # (Auto) 0.60 (0.00-0.90) K/UL Eos # (Auto) 0.00 (0.00-0.50) K/uL Baso # (Auto) 0.01 (0.00-0.30) K/uL INR 1.35 H (0.91-1.10) APTT 38 H (23-33) Seconds Sodium 134 L (135-149) mmol/L Potassium 4.1 (3.6-5.1) mmol/L Chloride 100 (96-114) mmol/L Carbon Dioxide 29 (20-32) mmol/L BUN 15 (5-24) mg/dL Creatinine 0.3 L (0.5-1.5) mg/dL Estimated Creat Clear 201.99 Estimated GFR 131 ml/min Glucose 156 H (60-115) mg/dL Lactate (0.5-1.9) mmol/L Calcium 9.5 (8.4-10.6) mg/dL Total Bilirubin 5.3 H (0.1-1.5) mg/dL AST 73 H (12-35) U/L ALT 93 H (4-35) U/L Alkaline Phosphatase 1248 H (40-150) U/L C-Reactive Protein 14.5 H (0.5-1.0) mg/dL Total Protein 7.4 (6.0-8.3) g/dL Albumin 3.7 (3.3-5.0) g/dL Lipase 33 (23-300) U/L Procalcitonin (<0.50) ng/mL SARS-CoV-2 (PCR) (Negative) Influenza Type A (PCR) (Negative) Influenza Type B (PCR) (Negative) RSV (PCR) (Negative) 04/30/22 04/30/22 04/30/22 Range/Units 15:35 20:19 20:25 WBC (4.50-11.00) K/uL RBC (4.00-5.20) m/uL Hgb (12.0-16.0) gm/dL Hct (33.0-51.0) % MCV (80-100) fL MCH (26-34) pg MCHC (32-36) gm/dL RDW Coeff of Honorio (11.5-15.5) % Plt Count (140-440) K/uL Neut % (Auto) (42.0-72.0) % Lymph % (Auto) (20-44) % Knott % (Auto) (0.0-11.0) % Eos % (Auto) (0.0-7.0) % Baso % (Auto) (0.0-3.0) % Neut # (Auto) (1.7-7.0) K/uL Lymph # (Auto) (0.90-2.90) K/uL Knott # (Auto) (0.00-0.90) K/UL Eos # (Auto) (0.00-0.50) K/uL Baso # (Auto) (0.00-0.30) K/uL INR (0.91-1.10) APTT (23-33) Seconds Sodium (135-149) mmol/L Potassium (3.6-5.1) mmol/L Chloride (96-114) mmol/L Carbon Dioxide (20-32) mmol/L BUN (5-24) mg/dL Creatinine (0.5-1.5) mg/dL Estimated Creat Clear Estimated GFR ml/min Glucose (60-115) mg/dL Lactate 0.6 (0.5-1.9) mmol/L Calcium (8.4-10.6) mg/dL Total Bilirubin (0.1-1.5) mg/dL AST (12-35) U/L ALT (4-35) U/L Alkaline Phosphatase (40-150) U/L C-Reactive Protein (0.5-1.0) mg/dL Total Protein (6.0-8.3) g/dL Albumin (3.3-5.0) g/dL Lipase (23-300) U/L Procalcitonin 0.51 H (<0.50) ng/mL SARS-CoV-2 (PCR) Negative SARS-CoV-2 (Negative) Influenza Type A (PCR) Negative PCR FLU A (Negative) Influenza Type B (PCR) Negative PCR FLU B (Negative) RSV (PCR) Negative PCR RSV (Negative) <Chanel Krishnamurthy MD - Last Filed: 05/01/22 14:20> Imaging Data CT Chest/Ab/Pelvis: Attestation: I have reviewed the pertinent imaging results. <Sandy Paul MD - Last Filed: 04/30/22 21:17> Radiologist's impression: Patient: SHAILA HENDERSON Facility:?[facility] Patient ID:?[id number] Site Patient ID:?[id number]. Site :?[id number] Study:?CT Chest/Abd/Pelvis 61cc ISOVUE 370-04/30/2022 5:17:46 PM Ordering Physician:Alberto Delgado Final Report: INDICATION: Liver cancer with increasing right upper quadrant pain, pleuritic chest pain, status post ERCP April 23, 2022 TECHNIQUE: CT chest, abdomen and pelvis acquired with 61 cc Isovue 370 IV contrast. COMPARISON: CT abdomen pelvis September 26, 2021 FINDINGS: Chest: Cardiovascular structures: Heart size is normal. Thoracic aorta and main pulmonary artery are normal in caliber. Right-sided Port-A-Cath tip terminates at the level of the right atrium. Mediastinum and smita: No mass or adenopathy. Multiple hypodense lesions within the thyroid gland with a few small calcifications. The largest lesion measures 1.3 x 2.1 cm. Esophageal varices. Lungs: 3.5 mm subpleural pulmonary nodule left upper lobe on image 35 series 3. 3.5 mm nodule left upper lobe image 53 series 3. 5 mm pulmonary nodule left upper lobe image 58 series 2. 3.0 mm nodule left lower lobe image 45 series 3. 3.8 mm nodule right middle lobe image 53 series 3. 1.0 cm cavitary nodule in the right lower lobe image 72 series 3, previously 7 mm. 2 mm pulmonary nodule right upper lobe image 29 series 3. Pleura and pericardium: No effusions. Chest wall and axilla: No mass or adenopathy. Bones: Unchanged 3 mm sclerotic lesion in the right T2 pedicle. 7 mm sclerotic lesion in the T7 vertebral body. 2 mm sclerotic lesion in the T8 vertebral body. 3 mm sclerotic lesion in the T3 vertebral body. 6 mm sclerotic lesion in the manubrium. Abdomen and Pelvis: Liver: Interval increase in size and number of hypodense lesions throughout the liver, the largest in the right hepatic lobe measuring 6.7 x 6.8 x 6.8 cm, previously 5.6 x 4.8 x 4.3 cm. There is a catheter extending from the duodenum, into the common bile duct and into the left main bile duct. There is mild intrahepatic biliary ductal dilatation, right greater than left. Non opacification the right portal vein branches. There appears to be some cavernous transformation of the right portal vein branches. Spleen: The spleen measures 13.8 cm in length. Pancreas: Unremarkable. Gallbladder and bile ducts: The gallbladder wall is thickened, measuring 9 mm in width. To wall is hypervascular. There is cholelithiasis and gallbladder sludge. Adrenal glands: Unremarkable. Kidneys: Unremarkable. GI tract: Unremarkable. Vascular structures: Splenic varices. Lymph nodes: Necrotic 1.2 cm portal caval lymph node on image 164 series 2. Miscellaneous: Unremarkable. No free air. Small amount of simple free fluid in the pelvis. Pelvic Organs: Unremarkable. Bones: Unchanged 5 mm sclerotic bone lesion in the right lateral aspect of the L4 vertebral body. Unchanged 5 mm sclerotic lesion in the right sacrum on image 216 series 2. New 1.0 cm sclerotic lesion in the right lateral aspect of the right L5 vertebrae. IMPRESSION: Thickened, hypervascular gallbladder wall with cholelithiasis and gallbladder sludge. Recommend right upper quadrant ultrasound for further evaluation. New duct biliary ductal catheter extending from the left main bile duct to the duodenum. Mild intrahepatic biliary ductal dilatation, right greater than left. Interval increase in size and number of hypodense lesions throughout the liver consistent with hepatic malignancy. Multiple pulmonary nodules and sclerotic bone lesions, some new and increased in size, concerning for metastatic disease. 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 Goiter. Please note that all CT scans at this facility use dose modulation, iterative reconstruction, and/or weight-based dosing when appropriate to reduce radiation dose to as low as reasonably achievable. Dictated by Brandee Ku MD @ 04/30/2022 6:41:03 PM (Electronic Signature) <Sandy Braga MD - Last Filed: 04/30/22 21:17> Critical Care Time Critical Care Time Critical Care Time: No <Sandy Braga MD - Last Filed: 04/30/22 21:17> Discharge Plan Discharge Clinical Impression: Cancer of liver, primary, Acute cholecystitis <Sandy Braga MD - Last Filed: 04/30/22 21:17> Patient Disposition: Xfer [place] <Sandy Braga MD - Last Filed: 04/30/22 21:17> Discharge Location: [facility] <Sandy Braga MD - Last Filed: 04/30/22 21:17> Stand Alone Forms: [facility] Info Instructions <Sandy Braga MD - Last Filed: 04/30/22 21:17>
--- NOTE | 2022-04-30 15:09 | CRLHL7_ITS ---
For Patients: As a result of the Century Cures Act, medical imaging exams and procedure reports are released immediately into your electronic medical record. You may view this report before your referring provider. If you have questions, please contact your health care provider. INDICATION: Liver cancer with increasing right upper quadrant pain, pleuritic chest pain, status post ERCP April 23, 2022 TECHNIQUE: CT chest, abdomen and pelvis acquired with 61 cc Isovue 370 IV contrast. COMPARISON: CT abdomen pelvis September 26, 2021 FINDINGS: Chest: Cardiovascular structures: Heart size is normal. Thoracic aorta and main pulmonary artery are normal in caliber. Right-sided Port-A-Cath tip terminates at the level of the right atrium. Mediastinum and smita: No mass or adenopathy. Multiple hypodense lesions within the thyroid gland with a few small calcifications. The largest lesion measures 1.3 x 2.1 cm. Esophageal varices. Lungs: 3.5 mm subpleural pulmonary nodule left upper lobe on image 35 series 3. 3.5 mm nodule left upper lobe image 53 series 3. 5 mm pulmonary nodule left upper lobe image 58 series 2. 3.0 mm nodule left lower lobe image 45 series 3. 3.8 mm nodule right middle lobe image 53 series 3. 1.0 cm cavitary nodule in the right lower lobe image 72 series 3, previously 7 mm. 2 mm pulmonary nodule right upper lobe image 29 series 3. Pleura and pericardium: No effusions. Chest wall and axilla: No mass or adenopathy. Bones: Unchanged 3 mm sclerotic lesion in the right T2 pedicle. 7 mm sclerotic lesion in the T7 vertebral body. 2 mm sclerotic lesion in the T8 vertebral body. 3 mm sclerotic lesion in the T3 vertebral body. 6 mm sclerotic lesion in the manubrium. Abdomen and Pelvis: Liver: Interval increase in size and number of hypodense lesions throughout the liver, the largest in the right hepatic lobe measuring 6.7 x 6.8 x 6.8 cm, previously 5.6 x 4.8 x 4.3 cm. There is a catheter extending from the duodenum, into the common bile duct and into the left main bile duct. There is mild intrahepatic biliary ductal dilatation, right greater than left. Non opacification the right portal vein branches. There appears to be some cavernous transformation of the right portal vein branches. Spleen: The spleen measures 13.8 cm in length. Pancreas: Unremarkable. Gallbladder and bile ducts: The gallbladder wall is thickened, measuring 9 mm in width. To wall is hypervascular. There is cholelithiasis and gallbladder sludge. Adrenal glands: Unremarkable. Kidneys: Unremarkable. GI tract: Unremarkable. Vascular structures: Splenic varices. Lymph nodes: Necrotic 1.2 cm portal caval lymph node on image 164 series 2. Miscellaneous: Unremarkable. No free air. Small amount of simple free fluid in the pelvis. Pelvic Organs: Unremarkable. Bones: Unchanged 5 mm sclerotic bone lesion in the right lateral aspect of the L4 vertebral body. Unchanged 5 mm sclerotic lesion in the right sacrum on image 216 series 2. New 1.0 cm sclerotic lesion in the right lateral aspect of the right L5 vertebrae. IMPRESSION: Thickened, hypervascular gallbladder wall with cholelithiasis and gallbladder sludge. Recommend right upper quadrant ultrasound for further evaluation. New duct biliary ductal catheter extending from the left main bile duct to the duodenum. Mild intrahepatic biliary ductal dilatation, right greater than left. Interval increase in size and number of hypodense lesions throughout the liver consistent with hepatic malignancy. Multiple pulmonary nodules and sclerotic bone lesions, some new and increased in size, concerning for metastatic disease. 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 Goiter. Please note that all CT scans at this facility use dose modulation, iterative reconstruction, and/or weight-based dosing when appropriate to reduce radiation dose to as low as reasonably achievable. Dictated by Brandee Ku MD @ 04/30/2022 6:41:03 PM ----- ADDENDUM ----- Addendum: Additional images from April 21, 2022 were made available for review. Evaluation of the liver again demonstrates multiple hypodense lesions throughout the liver. These are somewhat difficult to compare due to differences in timing of the IV contrast bolus, but at least 1 in the right hepatic lobe has increased in size from 1.3 cm to 1.7 cm on image 94 series 2. The largest mass in the right hepatic lobe measures 6.7 x 6.8 x 6.8 cm, previously 7.3 x 7.0 x 5.5 cm. The gallbladder wall is thickened on the current study compared to the prior exam. Gallstones, gallbladder sludge, and increased vascularity the gallbladder wall are again noted. Remainder of the exam is stable compared to April 21, 2022. Dictated by Brandee Ku MD @ May 05 2022 8:37PM (Electronically Signed)
[2022-04-30 15:48] LABS: Lactate* 0.6 mmol/L (0.5-1.9)
[2022-04-30 15:50] LABS: Basophils Absolute Auto 0.01 K/uL (0.00-0.30); Basophils Percent Auto 0.1 % (0.0-3.0); Immature Granulocytes Abs Auto 0.01 K/uL (0.00-0.30); Immature Granulocytes Pct Auto 0.1 %; Lymphocytes Percent Auto 2.2 % (20-44); Mean Corpuscular HGB Conc 32 gm/dL (32-36); Mean Corpuscular Hemoglobin 28 pg (26-34); Mean Corpuscular Volume 85 fL (80-100); Monocytes Percent Auto 6.7 % (0.0-11.0); Neutrophils Percent Auto 90.9 % (42.0-72.0); Platelet Count* 138 K/uL (140-440); RDW Coefficient of Variation % 14.7 % (11.5-15.5); Red Blood Count 3.63 m/uL (4.00-5.20); White Blood Count* 8.82 K/uL (4.50-11.00)
[2022-04-30] MEDS: ONDANSETRON 2 MG/ML inj 4 MG IVP (15:50)
[2022-04-30 15:57] LABS: Slide Review Reflex No
[2022-04-30] MEDS: MORPHINE 4 MG/ML INJ 2 MG IVP ×2 (16:00→17:21)
[2022-04-30 16:19] LABS: INR 1.35 (0.91-1.10); Prothrombin Time 17.4 Seconds
[2022-04-30 16:20] LABS: Partial Thromboplastin Time* 38 Seconds (23-33)
[2022-04-30 16:23] LABS: Albumin* 3.7 g/dL (3.3-5.0); Chloride* 100 mmol/L (96-114); Potassium* 4.1 mmol/L (3.6-5.1)
[2022-04-30 16:25] LABS: Creatinine* 0.3 mg/dL (0.5-1.5); Est. Creatinine Clearance* 201.99; Estimated Glomerular Filt Rate 131 ml/min
[2022-04-30 16:26] LABS: Alanine Aminotransferase* 93 U/L (4-35); Alkaline Phosphatase* 1248 U/L (40-150); Aspartate Amino Transferase* 73 U/L (12-35); Bilirubin Total* 5.3 mg/dL (0.1-1.5); Blood Urea Nitrogen* 15 mg/dL (5-24); Carbon Dioxide* 29 mmol/L (20-32); Lipase* 33 U/L (23-300); Total Protein* 7.4 g/dL (6.0-8.3)
[2022-04-30 16:27] LABS: Calcium* 9.5 mg/dL (8.4-10.6); Glucose* 156 mg/dL (60-115)
[2022-04-30 16:47] LABS: C Reactive Protein* 14.5 mg/dL (0.5-1.0)
[2022-04-30 17:10] LABS: Sodium* 134 mmol/L (135-149)
[2022-04-30] MEDS: 0.9 % SODIUM CHLORIDE 1000 ml 1,000 ML IV (18:24)
[2022-04-30] MEDS: MORPHINE 4 MG/ML INJ IVP (18:25)
[2022-04-30] MEDS: ACETAMINOPHEN 500 MG TABLET 1000 MG PO (20:13)
--- NOTE | 2022-04-30 20:17 | ED.NURSE ---
Pt reported feeling shaky, HR noted to be increased to ~120bpm. MD notified. Temperature checked, 99.3F. MD notified.
[2022-04-30] MEDS: HYDROmorphone 0.5 mg/0.5 ml inj IVP ×2 (20:38→23:39)
[2022-04-30 21:01] LABS: Procalcitonin* 0.51 ng/mL (<0.50)
[2022-04-30 21:16] LABS: PCR FLU A Negative PCR FLU A (Negative); PCR FLU B Negative PCR FLU B (Negative); PCR RSV Negative PCR RSV (Negative); SARS PCR* Negative SARS-CoV-2 (Negative)
[2022-04-30] MEDS: 0.9 % SODIUM CH + KCL 20 mEq/L 1,000 ML 75 ML IV (23:55)
[2022-05-01] VITALS (60 sets, daily range): BP systolic 103–140; BP diastolic 57–81; PULSE 92–109; O2SAT 94–100
[2022-05-01] MEDS: HYDROmorphone 0.5 mg/0.5 ml inj IVP ×6 (02:05→12:19)
[2022-05-01] MEDS: ACETAMINOPHEN 500 MG TABLET 1000 MG PO (04:25)
--- NOTE | 2022-05-01 06:21 | ED.NURSE ---
Patient ambulatory to [facility]. NS + 20meq K IV bag is noted to be spiked through the bag and has a slow drip to the floor. Infusion stopped at 548cc administered. HS bringing down new bag to infuse remaining 542/1,000cc order. Patient c/o increased pain. PRN Dilaudid given per eMAR.
--- NOTE | 2022-05-01 06:28 | ED.NURSE ---
Patient ambulatory to [facility]. NS + 20meq K IV bag is noted to be spiked through the bag and has a slow drip to the floor. Infusion stopped at 548cc administered. HS bringing down new bag to infuse remaining 452/1,000cc order. Patient c/o increased pain. PRN Dilaudid given per eMAR.
[2022-05-01] MEDS: hydrOXYzine pamoate 25 MG CAPSULE PO (12:19)
--- NOTE | 2022-05-01 13:15 | PC.NURSE ---
EMS here, pt to go to [facility] 4[facility], report given to Ashu BARILLAS on 4D
== END 2022-05-01 13:15 | disposition short-term general hospital (02) ==
PROVIDERS: Family Medicine; Emergency Provider Family Medicine
DX: C22.0 Liver cell carcinoma (principal); K81.0 Acute cholecystitis
CPT/HCPCS: 36415; 71260; 74177; 80053; 83605; 83690; 84145; 85025; 85610; 85730; 86140; 87040; 87502; 87634; 87635; 94761; 96365; 96366; 96375; 96376; 99285; A9270; J0743; J1170; J2270; J2405; J7030; J7050; Q9967

== ENCOUNTER 2022-05-01 13:02 | Outpatient (CLI) | payer OTHER, SELFPAY | END 2022-05-01 13:03 | disposition home or self-care (01) | LOC: AMB 05-02 | PROVIDERS: Visit Provider Family Medicine | DX: R10.9 Unspecified abdominal pain (principal); C22.9 Malignant neoplasm of liver, not specified as primary or secondary | CPT/HCPCS: A0425; A0434 ==

== ENCOUNTER 2022-06-22 12:47 | Inpatient (IN) | payer OTHER, SELFPAY ==
[2022-06-22] VITALS (35 sets, daily range): BP systolic 91–122; BP diastolic 48–89; PULSE 87–128; RESP 16–36; TEMP 36.5–38.2; O2SAT 91–98; BMI 17.0; BMI 17.7
--- NOTE | 2022-06-22 13:45 | CRLHL7_ITS ---
For Patients: As a result of the Century Cures Act, medical imaging exams and procedure reports are released immediately into your electronic medical record. You may view this report before your referring provider. If you have questions, please contact your health care provider. INDICATION: Leg pain and swelling. TECHNIQUE: Ultrasound venous duplex lower left extremity. Compression venous exam was performed using bautista-scale, color Doppler, and spectral Doppler analysis. COMPARISON: None. FINDINGS: Deep veins: Extensive areas of occlusive deep venous thrombosis involving the proximal to mid femoral, popliteal, peroneal and posterior tibial veins. Superficial veins: Greater saphenous vein is fully compressible. No popliteal cyst. IMPRESSION: Extensive left lower extremity deep venous thrombosis from the proximal thigh to the distal calf. Dictated by Scar Alarcon MD @ 06/22/2022 3:55:30 PM (Electronically Signed)
--- NOTE | 2022-06-22 13:46 | CRLHL7_ITS ---
For Patients: As a result of the Century Cures Act, medical imaging exams and procedure reports are released immediately into your electronic medical record. You may view this report before your referring provider. If you have questions, please contact your health care provider. Indication: Dyspnea. Technique: Chest 1 view. Comparison: CT chest April 30, 2022. Findings/Impression: Cardiovascular and mediastinum: Right heart border is obscured. Mediastinum appears normal. Right-sided port catheter. Lungs and pleural space: New large right side pleural effusion. Moderate central edema is suspected and more severe in the right lung. Remainder of the lungs and pleural spaces are clear. No pneumothorax. Bones and soft tissues: No acute findings. Dictated by Scar Alarcon MD @ 06/22/2022 3:20:48 PM (Electronically Signed)
[2022-06-22] MEDS: 0.9 % SODIUM CHLORIDE 1000 ml 1,000 ML IV (14:21)
[2022-06-22 14:32] LABS: HCO3 VBG 26 mmol/L (21-28); PCO2 VBG 34 mmHG (40-50); PO2 VBG 46.6 mmHG (25-47); pH VBG 7.504 (7.32-7.43)
[2022-06-22 14:33] LABS: Hematocrit 28.3 % (33.0-51.0); Hemoglobin* 8.8 gm/dL (12.0-16.0); Immature Granulocytes Pct Auto 0.6 %; Lymphocytes Percent Auto 1.4 % (20-44); Mean Corpuscular HGB Conc 31 gm/dL (32-36); Mean Corpuscular Hemoglobin 26 pg (26-34); Mean Corpuscular Volume 85 fL (80-100); Monocytes Percent Auto 4.6 % (0.0-11.0); Neutrophils Percent Auto 93.4 % (42.0-72.0); Platelet Count* 202 K/uL (140-440); Red Blood Count 3.35 m/uL (4.00-5.20)
[2022-06-22 14:34] LABS: Lactate Sepsis w/Reflex* 1.8 mmol/L (0.5-1.9)
--- NOTE | 2022-06-22 14:34 | ED_ITS ---
HPI - Weakness General Chief complaint: Weakness Stated complaint: Needs transfusion, possible blood clot L leg Time Seen by Provider: 06/22/22 13:28 History of Present Illness HPI Narrative: 47-year-old woman presenting to the emergency department with spouse with concern of weakness. Hard to walk and having to use railings to hoist herself up the stairs. Is also noted on arrival to have a fever. They are wondering why her pulse is elevated. 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 Last had chemotherapy mid April. Recommended not to continue due to weakness. Are doing alternative treatment entering now 5th week. On exam I note oral thrush present on her tongue. Apparently has been treated for that discontinued Magic mouthwash although symptoms clearly remain on her tongue; today or tomorrow is the last day of nystatin dosing. Is more short of breath having had a right thoracentesis done 2 weeks ago drained of 1 L. In mid April of this year went to [place] received ERCP and subsequently developed cholecystitis concern of sepsis and required stent revision. Did not have cholecystectomy. Has been transfused a number of times for anemia. reports a vein in the area of the liver, saniya-portal vein thrombus (clarified with Oncology). Has been discontinued on anticoagulants due to anemia. It sounds as though there may have been a bleed from possible varices during ERCP revision. During exam I note that her left leg has edema more than the right. She has been having pain in this left upper calf. They are concerned that it might be a stress fracture. They are concerned that she is anemic once again. question of gas on 06/11/22 scan showing possible perihepatic abscess though this was also postprocedural. Further conversation with Oncology -had discussed palliative care/hospice but sounds as though not ready for that yet. 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 Oncology care through [facility] now [place]. is primary caregiver. Smoking Status: Never smoker Do you use any of these nicotine containing products: None How often do you have a drink containing alcohol: never How often do you have six or more drinks on one occasion: Never AUDIT-C Alcohol total score: 0 Non-prescribed substance use: denies use Caffeine: No service: No Exam Narrative: Exam Narrative: Pleasant. Looks quite fatigued. Thin. Cranial nerves 2-12 look to be intact. Tachypneic and mildly labored in her breathing. Skin is warm and dry. Well perfused. Mucous membranes are pale. Her left leg has 1+ edema from mid calf distal including around the ankle. Tender to palpation in the left upper calf musculature. No erythematous changes. The right leg really is without edema. There is mild scleral icterus. Oropharynx is hyperemic with white plaquing on her tongue. Dry generally. Lungs with equal expansion excursion. Diminished breath sounds in the right lower lung. There is large Band-Aid on the right posterior lateral chest wall. Abdomen is protuberant soft nontender with normal bowel sounds. Fullness across the upper and mid abdomen though. Heart is tachycardic in a regular rhythm. Const: Vital Signs, click to edit/add: Vital Signs - 24 hr 06/22/22 13:01 06/22/22 13:30 06/22/22 13:35 Temperature 100.8 F H 100.3 F H Pulse Rate 126 H Pulse Rate [Pulse Oximeter] 128 H Respiratory Rate 36 H Blood Pressure 115/84 Blood Pressure [Le ft Upper Arm] 116/79 Pulse Oximetry 96 96 Oxygen Delivery Me thod Room Air 06/22/22 13:36 06/22/22 14:00 06/22/22 14:01 Temperature Pulse Rate 125 H 128 H 123 H Pulse Rate [Pulse Oximeter] Respiratory Rate Blood Pressure 119/89 Blood Pressure [Le ft Upper Arm] Pulse Oximetry 96 96 95 Oxygen Delivery Me thod 06/22/22 14:30 06/22/22 14:31 06/22/22 15:00 Temperature Pulse Rate 119 H 122 H 120 H Pulse Rate [Pulse Oximeter] Respiratory Rate Blood Pressure 114/78 Blood Pressure [Le ft Upper Arm] Pulse Oximetry 96 95 97 Oxygen Delivery Me thod 06/22/22 15:01 06/22/22 15:02 06/22/22 15:15 Temperature 99.9 F H Pulse Rate 119 H 119 H 116 H Pulse Rate [Pulse Oximeter] Respiratory Rate Blood Pressure 113/78 Blood Pressure [Le ft Upper Arm] Pulse Oximetry 97 96 95 Oxygen Delivery Me thod 06/22/22 15:30 06/22/22 15:31 06/22/22 15:45 Temperature Pulse Rate 116 H 114 H 110 H Pulse Rate [Pulse Oximeter] Respiratory Rate Blood Pressure 107/74 Blood Pressure [Le ft Upper Arm] Pulse Oximetry 96 95 94 Oxygen Delivery Me thod 06/22/22 16:00 06/22/22 16:02 06/22/22 16:12 Temperature Pulse Rate 120 H 119 H 113 H Pulse Rate [Pulse Oximeter] Respiratory Rate Blood Pressure 114/82 109/73 Blood Pressure [Le ft Upper Arm] Pulse Oximetry 98 95 95 Oxygen Delivery Me thod 06/22/22 16:15 06/22/22 16:17 06/22/22 16:30 Temperature Pulse Rate 116 H 116 H 112 H Pulse Rate [Pulse Oximeter] Respiratory Rate Blood Pressure 122/83 Blood Pressure [Le ft Upper Arm] Pulse Oximetry 95 96 94 Oxygen Delivery Me thod 06/22/22 16:32 06/22/22 16:45 06/22/22 16:47 Temperature Pulse Rate 112 H 111 H 109 H Pulse Rate [Pulse Oximeter] Respiratory Rate Blood Pressure 118/78 106/75 Blood Pressure [Le ft Upper Arm] Pulse Oximetry 95 95 95 Oxygen Delivery Me thod 06/22/22 17:00 06/22/22 17:01 06/22/22 17:25 Temperature Pulse Rate 106 H 105 H 100 Pulse Rate [Pulse Oximeter] Respiratory Rate Blood Pressure 109/80 Blood Pressure [Le ft Upper Arm] Pulse Oximetry 95 95 93 Oxygen Delivery Me thod 06/22/22 17:30 06/22/22 17:32 06/22/22 17:45 Temperature Pulse Rate 96 99 98 Pulse Rate [Pulse Oximeter] Respiratory Rate Blood Pressure 91/48 L Blood Pressure [Le ft Upper Arm] Pulse Oximetry 91 93 93 Oxygen Delivery Me thod 06/22/22 17:46 06/22/22 18:00 06/22/22 18:01 Temperature Pulse Rate 98 96 98 Pulse Rate [Pulse Oximeter] Respiratory Rate Blood Pressure 107/69 106/69 Blood Pressure [Le ft Upper Arm] Pulse Oximetry 93 93 93 Oxygen Delivery Me thod 06/22/22 23:04 Temperature 99.9 F H Pulse Rate Pulse Rate [Pulse Oximeter] 110 H Respiratory Rate 36 H Blood Pressure Blood Pressure [Le ft Upper Arm] 116/79 Pulse Oximetry Oxygen Delivery Me thod Documenting provider has reviewed patient's vital signs: yes Course Vital Signs Vital signs: Initial Vital Signs Temperature 100.8 F H 06/22/22 13:01 Temperature Source Temporal Artery Scan 06/22/22 13:01 Pulse Rate 128 H 06/22/22 13:01 Pulse Rhythm 06/22/22 13:01 Respiratory Rate 36 H 06/22/22 13:01 Blood Pressure 116/79 06/22/22 13:01 Blood Pressure Mean 91 06/22/22 13:01 Blood Pressure Position Supine 06/22/22 13:01 Pulse Oximetry 96 06/22/22 13:01 Oxygen Delivery Method 06/22/22 13:01 Vital Signs Temperature 100.8 F H 06/22/22 13:01 Pulse Rate 128 H 06/22/22 13:01 Respiratory Rate 36 H 06/22/22 13:01 Blood Pressure 116/79 06/22/22 13:01 Pulse Oximetry 96 06/22/22 13:01 Oxygen Delivery Method 06/22/22 13:01 Temperature 97.7 F 06/23/22 03:00 Pulse Rate 85 06/23/22 03:00 Respiratory Rate 20 06/23/22 03:00 Blood Pressure 100/67 06/23/22 03:00 Pulse Oximetry 93 06/23/22 03:00 Oxygen Delivery Method 06/23/22 03:00 MDM - Weakness MDM Narrative Medical decision making narrative: Complicated situation here. I would presume evolution of DVT in the left lower leg. I suspect also recurrence/reaccumulation of right-sided pleural effusion. She is not particularly hypoxic. Sepsis is in differential. Not having particular abdominal pain. Blood cultures. IV fluids. White count is over 30,000 Bilirubin somewhat elevated at 2.8 primarily direct component. CRP of 22 procalcitonin of 4.6 urinalysis with bilirubinemia Chest x-ray by my read confirms reaccumulation of pleural effusion right side. Unsure if there would be a secondary pneumonia. Ordered for antibiotics but given reported anaphylaxis with amoxicillin, given Primaxin and vancomycin Did order ultrasound also of the left lower extremity which shows extensive femoral vein clot per my conversation with technologist I did speak with [facility] Dr. Pham. Very supportive. Would indeed recommend proceeding with IV antibiotics. Unfortunately from oncology perspective there is little left offer. Believes could admit to [place] hospice. I discussed all these findings with Mrs. Oconnell her . in particular is having a hard time with this. They are particularly shocked that there is a DVT. wonders if blood transfusions from persons vaccinated f or COVID may have contributed. Tears. They note how active and healthy she used to be. My assessment is that they need further information and understandably this would potentially direct some medical care. Higher risk for anticoagulants and furthermore will need repeat taps/thoracentesis. Incidentally they report that Laly has open door policy apparently at [place] [facility] to receive these thoracenteses presuming reaccumulation. Will be scanning chest and abdomen looking for further characterization/location of potential infection, pulmonary embolus. notes how her color has improved after IV hydration. My review of CTA of chest abdomen pelvis shows large right-sided pleural effusion, small foci of air in the right saniya hepatic area without rim enhancement, abdominal ascites, extensive and numerous lesions throughout the liver and looks like some in the spleen as well. Radiology over-read as below TECHNIQUE: CT chest, abdomen, and pelvis acquired with 95 mL Isovue 370 contrast. COMPARISON: CT chest/abdomen/pelvis dated 04/30/2022. FINDINGS: CHEST: Lungs and pleura: Large loculated right pleural effusion, resulting in complete atelectasis of the right lower lobe and near complete atelectasis of the right upper lobe. Partially aerated right middle lobe. Small left pleural effusion. There are scattered foci of ground-glass opacities in the left upper lobe and lingula. There are also subcentimeter pulmonary nodules which have increased in conspicuity since prior study. Heart and vessels: No cardiomegaly, no pericardial effusion. Small filling defects are noted within left lower lobe segmental pulmonary arteries (for example series 9, image 123), consistent with nonocclusive pulmonary emboli. Thyroid and lower neck: Large heterogeneous partially calcified left thyroid nodule, not significantly changed. Mediastinum/smita: No definite lymphadenopathy. Chest wall: No axillary lymphadenopathy. ABDOMEN/PELVIS: Liver: Innumerable ill-defined lesions throughout the liver, significantly increased since prior study, consistent with metastatic disease progression. Large infiltrative lesion in the central aspect of the liver has increased in size as well, consistent with progression of known cholangiocarcinoma. Gallbladder and bile ducts: Additional biliary stents have been placed since prior study. Mild pneumobilia is present. Pancreas: Unremarkable. Spleen: Splenule is noted. New too small to characterize hypodense lesions within the spleen. Adrenal glands: Unremarkable. Kidneys: Kidneys enhance symmetrically, without hydronephrosis. Retroperitoneum: No pathologically enlarged retroperitoneal lymph nodes. Bowel and mesentery: Bowel is not obstructed. Moderate volume ascites, limits evaluation for peritoneal carcinomatosis. Slightly increased size of necrotic lymph nodes in the lex hepatis, consistent with progressive metastases. No pneumoperitoneum. Bladder: Unremarkable for degree of distension. Reproductive organs: Unremarkable. Pelvic lymph nodes: No lymphadenopathy. Vessels: Partially visualized deep venous thrombosis in the left superficial femoral vein (series 13, image 177). Abdominal wall: Cachexia. Bones: Multilevel degenerative changes of the spine. No suspicious/aggressive focal osseous lesion. Stable scattered sclerotic vertebral body lesions, may reflect bone islands. IMPRESSION: 1. Small nonocclusive pulmonary emboli in the left lower lobe segmental pulmonary arteries. 2. Large loculated right pleural effusion, resulting in near complete atelectasis of the right lung. Small left pleural effusion. 3. Scattered foci of ground-glass opacities in the left lung, which may be infectious/inflammatory in etiology. However, some subcentimeter pulmonary nodules have increased in conspicuity, worrisome for pulmonary metastases progression. 4. Interval progression of primary cholangiocarcinoma as well as extensive progression of hepatic metastases. 5. Additional findings suspicious for metastases include new small splenic lesions, increased size of necrotic lex hepatis lymph nodes. 6. Partially visualized deep venous thrombosis in the left superficial femoral vein Spent again extensive time in conversations with Ms. Oconnell her about options, expectations for care. Did discuss with our hospitalist, who notes support of hospice/palliative care, and again with Oncology Dr. Pham at [place] [facility] [place]. Laly indicates her level of exhaustion and that going back and forth to [place] [facility] even for therapeutic tap feels overwhelming. Discussed with our surgeon on-call about doing a therapeutic tap. This can be supported here. My thought is that source of infection is likely right-sided pleural effusion, possibly empyema here. I do not think that the findings in the left lung and what ever is represented by this small amount of air adjacent to the liver is driving this white count. has been concerned about admission apparently advising Laly that if s he were admitted to this facility she might not be permitted to leave indicating that that was the case at [facility]. And that he was shocked at the degree of weight loss she experienced during that hospitalization noting again that they have been trying hard to regain weight. He has been making shake supplements and avoiding sugar. As far as freedom to depart, I contradicted this noting that she is of sound mind and free will. I also noted to him that I imagine he would be able to bring in any food or supplements that he thought would be helpful to Laly. He emphasizes has inability to give up. Conclusion is to be admitted here, treated with IV antibiotics and discharged as soon as possible. Laly does have a college son home who has a birthday this week and 13-year-old boy at home as well. Medical Records Attestation: I reviewed the patient's medical records. Lab Data Attestation: I reviewed the patient's lab results. Labs: Lab Results 06/22/22 06/22/22 06/22/22 Range/Units 13:47 13:47 14:06 WBC (4.50-11.00) K/uL RBC (4.00-5.20) m/uL Hgb (12.0-16.0) gm/dL Hct (33.0-51.0) % MCV (80-100) fL MCH (26-34) pg MCHC (32-36) gm/dL RDW Coeff of Honorio (11.5-15.5) % Plt Count (140-440) K/uL Neut % (Auto) (42.0-72.0) % Lymph % (Auto) (20-44) % Anson % (Auto) (0.0-11.0) % Eos % (Auto) (0.0-7.0) % Baso % (Auto) (0.0-3.0) % Neut # (Auto) (1.7-7.0) K/uL Lymph # (Auto) (0.90-2.90) K/uL Anson # (Auto) (0.00-0.90) K/UL Eos # (Auto) (0.00-0.50) K/uL Baso # (Auto) (0.00-0.30) K/uL Diff Slide Review (Acceptable) INR (0.91-1.10) APTT (23-33) Seconds D-Dimer Quant (PE/DVT) (0.00-0.50) ug/ml VBG pH (7.32-7.43) VBG pCO2 (40-50) mmHG VBG pO2 (25-47) mmHG VBG HCO3 (21-28) mmol/L Sodium (135-149) mmol/L Potassium (3.6-5.1) mmol/L Chloride (96-114) mmol/L Carbon Dioxide (20-32) mmol/L BUN (5-24) mg/dL Creatinine (0.5-1.5) mg/dL Estimated Creat Clear Estimated GFR ml/min Glucose (60-115) mg/dL Calcium (8.4-10.6) mg/dL Magnesium (1.5-2.6) mg/dL Total Bilirubin (0.1-1.5) mg/dL Direct Bilirubin (0.0-0.5) mg/dL AST (12-35) U/L ALT (4-35) U/L Alkaline Phosphatase (40-150) U/L Ammonia (13.1-30.0) umol/L Lactate Baseline 1.8 (0.5-1.9) mmol/L C-Reactive Protein (0.5-1.0) mg/dL NT-Pro-B Natriuret Pep pg/mL Total Protein (6.0-8.3) g/dL Albumin (3.3-5.0) g/dL Procalcitonin (<0.50) ng/mL Urine Color (Yellow) Urine Appearance (Clear) Urine pH (5.0-8.5) Ur Specific Alvarado (1.000-1.030) Urine Protein (Negative) Urine Glucose (UA) (Negative) Urine Ketones (Negative) Urine Blood (Negative) Urine Nitrite (Negative) Urine Bilirubin (Negative) Urine Urobilinogen (0.2-1.0) Ur Leukocyte Esterase (Negative) Urine RBC (0-2) Urine WBC (0-5) Ur Squamous Epith Cells (None-Few) Urine Bacteria (None) SARS-CoV-2 (PCR) Negative SARS-CoV-2 (Negative) Influenza Type A (PCR) Negative PCR FLU A (Negative) Influenza Type B (PCR) Negative PCR FLU B (Negative) RSV (PCR) Negative PCR RSV (Negative) Group A Strep DNA NOT DETECTED (Not Detectd) Blood Type Antibody Screen 06/22/22 06/22/22 06/22/22 Range/Units 14:06 14:06 14:06 WBC 30.40 H* (4.50-11.00) K/uL RBC 3.35 L (4.00-5.20) m/uL Hgb 8.8 L (12.0-16.0) gm/dL Hct 28.3 L (33.0-51.0) % MCV 85 (80-100) fL MCH 26 (26-34) pg MCHC 31 L (32-36) gm/dL RDW Coeff of Honorio 19.0 H (11.5-15.5) % Plt Count 202 (140-440) K/uL Neut % (Auto) 93.4 H (42.0-72.0) % Lymph % (Auto) 1.4 L (20-44) % Anson % (Auto) 4.6 (0.0-11.0) % Eos % (Auto) 0.0 (0.0-7.0) % Baso % (Auto) 0.0 (0.0-3.0) % Neut # (Auto) 28.40 H (1.7-7.0) K/uL Lymph # (Auto) 0.40 L (0.90-2.90) K/uL Anson # (Auto) 1.40 H (0.00-0.90) K/UL Eos # (Auto) 0.00 (0.00-0.50) K/uL Baso # (Auto) 0.00 (0.00-0.30) K/uL Diff Slide Review Acceptable Review (Acceptable) INR (0.91-1.10) APTT (23-33) Seconds D-Dimer Quant (PE/DVT) 3.90 H (0.00-0.50) ug/ml VBG pH (7.32-7.43) VBG pCO2 (40-50) mmHG VBG pO2 (25-47) mmHG VBG HCO3 (21-28) mmol/L Sodium (135-149) mmol/L Potassium (3.6-5.1) mmol/L Chloride (96-114) mmol/L Carbon Dioxide (20-32) mmol/L BUN (5-24) mg/dL Creatinine (0.5-1.5) mg/dL Estimated Creat Clear Estimated GFR ml/min Glucose (60-115) mg/dL Calcium (8.4-10.6) mg/dL Magnesium (1.5-2.6) mg/dL Total Bilirubin (0.1-1.5) mg/dL Direct Bilirubin (0.0-0.5) mg/dL AST (12-35) U/L ALT (4-35) U/L Alkaline Phosphatase (40-150) U/L Ammonia (13.1-30.0) umol/L Lactate Baseline (0.5-1.9) mmol/L C-Reactive Protein (0.5-1.0) mg/dL NT-Pro-B Natriuret Pep pg/mL Total Protein (6.0-8.3) g/dL Albumin (3.3-5.0) g/dL Procalcitonin (<0.50) ng/mL Urine Color (Yellow) Urine Appearance (Clear) Urine pH (5.0-8.5) Ur Specific Alvarado (1.000-1.030) Urine Protein (Negative) Urine Glucose (UA) (Negative) Urine Ketones (Negative) Urine Blood (Negative) Urine Nitrite (Negative) Urine Bilirubin (Negative) Urine Urobilinogen (0.2-1.0) Ur Leukocyte Esterase (Negative) Urine RBC (0-2) Urine WBC (0-5) Ur Squamous Epith Cells (None-Few) Urine Bacteria (None) SARS-CoV-2 (PCR) (Negative) Influenza Type A (PCR) (Negative) Influenza Type B (PCR) (Negative) RSV (PCR) (Negative) Group A Strep DNA (Not Detectd) Blood Type B Positive Antibody Screen NEGATIVE 06/22/22 06/22/22 06/22/22 Range/Units 14:06 14:06 14:06 WBC (4.50-11.00) K/uL RBC (4.00-5.20) m/uL Hgb (12.0-16.0) gm/dL Hct (33.0-51.0) % MCV (80-100) fL MCH (26-34) pg MCHC (32-36) gm/dL RDW Coeff of Honorio (11.5-15.5) % Plt Count (140-440) K/uL Neut % (Auto) (42.0-72.0) % Lymph % (Auto) (20-44) % Anson % (Auto) (0.0-11.0) % Eos % (Auto) (0.0-7.0) % Baso % (Auto) (0.0-3.0) % Neut # (Auto) (1.7-7.0) K/uL Lymph # (Auto) (0.90-2.90) K/uL Anson # (Auto) (0.00-0.90) K/UL Eos # (Auto) (0.00-0.50) K/uL Baso # (Auto) (0.00-0.30) K/uL Diff Slide Review (Acceptable) INR 1.47 H (0.91-1.10) APTT 40 H (23-33) Seconds D-Dimer Quant (PE/DVT) (0.00-0.50) ug/ml VBG pH (7.32-7.43) VBG pCO2 (40-50) mmHG VBG pO2 (25-47) mmHG VBG HCO3 (21-28) mmol/L Sodium 129 L (135-149) mmol/L Potassium 4.3 (3.6-5.1) mmol/L Chloride 99 (96-114) mmol/L Carbon Dioxide 25 (20-32) mmol/L BUN 20 (5-24) mg/dL Creatinine 0.4 L (0.5-1.5) mg/dL Estimated Creat Clear 148.62 Estimated GFR 121 ml/min Glucose 194 H (60-115) mg/dL Calcium 8.9 (8.4-10.6) mg/dL Magnesium 2.0 (1.5-2.6) mg/dL Total Bilirubin 2.8 H (0.1-1.5) mg/dL Direct Bilirubin 1.9 H (0.0-0.5) mg/dL AST 30 (12-35) U/L ALT 33 (4-35) U/L Alkaline Phosphatase 656 H (40-150) U/L Ammonia 26.0 (13.1-30.0) umol/L Lactate Baseline (0.5-1.9) mmol/L C-Reactive Protein 21.7 H (0.5-1.0) mg/dL NT-Pro-B Natriuret Pep 711 pg/mL Total Protein 6.0 (6.0-8.3) g/dL Albumin 2.7 L (3.3-5.0) g/dL Procalcitonin (<0.50) ng/mL Urine Color (Yellow) Urine Appearance (Clear) Urine pH (5.0-8.5) Ur Specific Alvarado (1.000-1.030) Urine Protein (Negative) Urine Glucose (UA) (Negative) Urine Ketones (Negative) Urine Blood (Negative) Urine Nitrite (Negative) Urine Bilirubin (Negative) Urine Urobilinogen (0.2-1.0) Ur Leukocyte Esterase (Negative) Urine RBC (0-2) Urine WBC (0-5) Ur Squamous Epith Cells (None-Few) Urine Bacteria (None) SARS-CoV-2 (PCR) (Negative) Influenza Type A (PCR) (Negative) Influenza Type B (PCR) (Negative) RSV (PCR) (Negative) Group A Strep DNA (Not Detectd) Blood Type Antibody Screen 06/22/22 06/22/22 06/22/22 Range/Units 14:06 14:06 14:50 WBC (4.50-11.00) K/uL RBC (4.00-5.20) m/uL Hgb (12.0-16.0) gm/dL Hct (33.0-51.0) % MCV (80-100) fL MCH (26-34) pg MCHC (32-36) gm/dL RDW Coeff of Honorio (11.5-15.5) % Plt Count (140-440) K/uL Neut % (Auto) (42.0-72.0) % Lymph % (Auto) (20-44) % Anson % (Auto) (0.0-11.0) % Eos % (Auto) (0.0-7.0) % Baso % (Auto) (0.0-3.0) % Neut # (Auto) (1.7-7.0) K/uL Lymph # (Auto) (0.90-2.90) K/uL Anson # (Auto) (0.00-0.90) K/UL Eos # (Auto) (0.00-0.50) K/uL Baso # (Auto) (0.00-0.30) K/uL Diff Slide Review (Acceptable) INR (0.91-1.10) APTT (23-33) Seconds D-Dimer Quant (PE/DVT) (0.00-0.50) ug/ml VBG pH 7.504 H (7.32-7.43) VBG pCO2 34 L (40-50) mmHG VBG pO2 46.6 (25-47) mmHG VBG HCO3 26 (21-28) mmol/L Sodium (135-149) mmol/L Potassium (3.6-5.1) mmol/L Chloride (96-114) mmol/L Carbon Dioxide (20-32) mmol/L BUN (5-24) mg/dL Creatinine (0.5-1.5) mg/dL Estimated Creat Clear Estimated GFR ml/min Glucose (60-115) mg/dL Calcium (8.4-10.6) mg/dL Magnesium (1.5-2.6) mg/dL Total Bilirubin (0.1-1.5) mg/dL Direct Bilirubin (0.0-0.5) mg/dL AST (12-35) U/L ALT (4-35) U/L Alkaline Phosphatase (40-150) U/L Ammonia (13.1-30.0) umol/L Lactate Baseline (0.5-1.9) mmol/L C-Reactive Protein (0.5-1.0) mg/dL NT-Pro-B Natriuret Pep pg/mL Total Protein (6.0-8.3) g/dL Albumin (3.3-5.0) g/dL Procalcitonin 3.59 H (<0.50) ng/mL Urine Color Red A (Yellow) Urine Appearance Slightly Cloudy A (Clear) Urine pH 6.0 (5.0-8.5) Ur Specific Alvarado 1.010 (1.000-1.030) Urine Protein 1+ A (Negative) Urine Glucose (UA) Negative (Negative) Urine Ketones Trace A (Negative) Urine Blood Negative (Negative) Urine Nitrite Negative (Negative) Urine Bilirubin 2+ A (Negative) Urine Urobilinogen 2.0 A (0.2-1.0) Ur Leukocyte Esterase Trace A (Negative) Urine RBC 0-2 (0-2) Urine WBC 2-5 (0-5) Ur Squamous Epith Cells Few (None-Few) Urine Bacteria Few A (None) SARS-CoV-2 (PCR) (Negative) Influenza Type A (PCR) (Negative) Influenza Type B (PCR) (Negative) RSV (PCR) (Negative) Group A Strep DNA (Not Detectd) Blood Type Antibody Screen Discharge Plan Discharge Clinical Impression: Pleural effusion, DVT (deep venous thrombosis), Pulmonary emboli, Malnutrition, 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
[2022-06-22 14:59] LABS: Albumin* 2.7 g/dL (3.3-5.0)
[2022-06-22 15:00] LABS: Appearance Urine Slightly Cloudy (Clear); Bilirubin Urine 2+ (Negative); Blood Urine Negative (Negative); Color Urine Red (Yellow); Glucose Urine Negative (Negative); Ketones Urine Trace (Negative); Leukocyte Esterase Urine Trace (Negative); Nitrite Urine Negative (Negative); Protein Urine 1+ (Negative)
[2022-06-22 15:00] LABS: Chloride* 99 mmol/L (96-114); Potassium* 4.3 mmol/L (3.6-5.1); Sodium* 129 mmol/L (135-149)
[2022-06-22 15:02] LABS: Creatinine* 0.4 mg/dL (0.5-1.5); Est. Creatinine Clearance* 148.62; Estimated Glomerular Filt Rate 121 ml/min
[2022-06-22 15:03] LABS: Alkaline Phosphatase* 656 U/L (40-150); Aspartate Amino Transferase* 30 U/L (12-35); Bilirubin Direct* 1.9 mg/dL (0.0-0.5); Bilirubin Total* 2.8 mg/dL (0.1-1.5); Blood Urea Nitrogen* 20 mg/dL (5-24); Carbon Dioxide* 25 mmol/L (20-32); Glucose* 194 mg/dL (60-115)
[2022-06-22 15:04] LABS: Alanine Aminotransferase* 33 U/L (4-35); Calcium* 8.9 mg/dL (8.4-10.6)
[2022-06-22 15:05] LABS: Strep A DNA Probe* NOT DETECTED (Not Detectd)
[2022-06-22 15:09] LABS: PCR FLU A Negative PCR FLU A (Negative); PCR FLU B Negative PCR FLU B (Negative); PCR RSV Negative PCR RSV (Negative)
[2022-06-22 15:11] LABS: Slide Review Reflex Yes
[2022-06-22 15:12] LABS: SARS PCR* Negative SARS-CoV-2 (Negative)
[2022-06-22 15:12] LABS: Slide Review Acceptable Review (Acceptable)
[2022-06-22 15:14] LABS: INR 1.47 (0.91-1.10); Partial Thromboplastin Time* 40 Seconds (23-33); Prothrombin Time 18.6 Seconds
--- NOTE | 2022-06-22 15:14 | ED.NURSE ---
critical lab value WBC 30.[address] Alvarado of this result. Dr. Alvarado wants to talk with Oncologist consult.
[2022-06-22 15:15] LABS: NT Pro B Type NatriureticPept* 711 pg/mL
[2022-06-22 15:16] LABS: Bacteria Urine Few; RBC Urine 0-2 (0-2); Squamous Epithelial Cell Urine Few (None-Few)
[2022-06-22 15:20] LABS: Procalcitonin* 3.59 ng/mL (<0.50)
[2022-06-22 15:21] LABS: C Reactive Protein* 21.7 mg/dL (0.5-1.0)
[2022-06-22] MEDS: LACTATED RINGERS 1000 ML 1,000 ML IV (15:31)
--- NOTE | 2022-06-22 16:44 | CRLHL7_ITS ---
For Patients: As a result of the Century Cures Act, medical imaging exams and procedure reports are released immediately into your electronic medical record. You may view this report before your referring provider. If you have questions, please contact your health care provider. INDICATION: Extensive deep venous thrombosis, evaluate for pulmonary embolism. History of cholangiocarcinoma. TECHNIQUE: CT chest, abdomen, and pelvis acquired with 95 mL Isovue 370 contrast. COMPARISON: CT chest/abdomen/pelvis dated 04/30/2022. FINDINGS: CHEST: Lungs and pleura: Large loculated right pleural effusion, resulting in complete atelectasis of the right lower lobe and near complete atelectasis of the right upper lobe. Partially aerated right middle lobe. Small left pleural effusion. There are scattered foci of ground-glass opacities in the left upper lobe and lingula. There are also subcentimeter pulmonary nodules which have increased in conspicuity since prior study. Heart and vessels: No cardiomegaly, no pericardial effusion. Small filling defects are noted within left lower lobe segmental pulmonary arteries (for example series 9, image 123), consistent with nonocclusive pulmonary emboli. Thyroid and lower neck: Large heterogeneous partially calcified left thyroid nodule, not significantly changed. Mediastinum/smita: No definite lymphadenopathy. Chest wall: No axillary lymphadenopathy. ABDOMEN/PELVIS: Liver: Innumerable ill-defined lesions throughout the liver, significantly increased since prior study, consistent with metastatic disease progression. Large infiltrative lesion in the central aspect of the liver has increased in size as well, consistent with progression of known cholangiocarcinoma. Gallbladder and bile ducts: Additional biliary stents have been placed since prior study. Mild pneumobilia is present. Pancreas: Unremarkable. Spleen: Splenule is noted. New too small to characterize hypodense lesions within the spleen. Adrenal glands: Unremarkable. Kidneys: Kidneys enhance symmetrically, without hydronephrosis. Retroperitoneum: No pathologically enlarged retroperitoneal lymph nodes. Bowel and mesentery: Bowel is not obstructed. Moderate volume ascites, limits evaluation for peritoneal carcinomatosis. Slightly increased size of necrotic lymph nodes in the lex hepatis, consistent with progressive metastases. No pneumoperitoneum. Bladder: Unremarkable for degree of distension. Reproductive organs: Unremarkable. Pelvic lymph nodes: No lymphadenopathy. Vessels: Partially visualized deep venous thrombosis in the left superficial femoral vein (series 13, image 177). Abdominal wall: Cachexia. Bones: Multilevel degenerative changes of the spine. No suspicious/aggressive focal osseous lesion. Stable scattered sclerotic vertebral body lesions, may reflect bone islands. IMPRESSION: 1. Small nonocclusive pulmonary emboli in the left lower lobe segmental pulmonary arteries. 2. Large loculated right pleural effusion, resulting in near complete atelectasis of the right lung. Small left pleural effusion. 3. Scattered foci of ground-glass opacities in the left lung, which may be infectious/inflammatory in etiology. However, some subcentimeter pulmonary nodules have increased in conspicuity, worrisome for pulmonary metastases progression. 4. Interval progression of primary cholangiocarcinoma as well as extensive progression of hepatic metastases. 5. Additional findings suspicious for metastases include new small splenic lesions, increased size of necrotic lex hepatis lymph nodes. 6. Partially visualized deep venous thrombosis in the left superficial femoral vein. Please note that all CT scans at this facility use dose modulation, iterative reconstruction, and/or weight-based dosing when appropriate to reduce radiation dose to as low as reasonably achievable. Dictated by Ce Guerra MD @ 06/22/2022 6:59:17 PM (Electronically Signed)
--- NOTE | 2022-06-22 20:30 | ED.NURSE ---
Patient assisted up to the commode. Patient requires assistance to move from bed to commode and back to commode. Patient and tearful in the room
--- NOTE | 2022-06-22 22:43 | P.IMHP_ITS ---
Hospitalist- H&P: HPI History of Present Illness Date Seen: 06/22/22 Chief complaint: Needs transfusion, possible blood clot L leg Narrative: Laly Oconnell is a 47 year old female with metastatic cholangiocarcinoma admitted through the emergency department with progressive weakness and left leg pain. Patient has been undergoing treatment for metastatic cholangiocarcinoma. Initially getting treatment through [facility] in [place]. Switched to [facility] where she hope to be enroll in a trial. Unfortunately complications of her disease kept her from being enrolled in that trial. Particularly having biliary obstruction problems leading to recurrent placements of biliary stents x3. They did offer her 1 last trial of conventional chemotherapy but she poorly tolerated it and her [facility] oncologist and patient agreed that no further attempts at chemotherapy would be beneficial. She has a right malignant pleural effusion which was drained 2 weeks ago at [facility]. She has been getting slowly more short of breath since that procedure. They had discussed placing a PleurX catheter at [facility]. She had a GI bleed of unclear etiology discovered when they were placing a biliary stent. She was found to have esophageal varices but they were not bleeding at the time they saw them. No other ulcerations were noted. They discontinued her anticoagulation which she had been on for a probable portal vein thrombosis due to the finding of bleeding. For the last several days she has had increasing pain and swelling in her left calf. She is not aware of any fever. She has been profoundly and progressively weaker in the last couple days. She is now no longer able ambulate without assistance. They have been offered hospice/palliative care but are not ready for that. With her they have found a treatment recommended by a man in [place], a veterinary anti parasitic called fenbendazole, which has reportedly cured this man's cholangiocarcinoma. Review of Systems Narrative: Profound fatigue, malaise, weakness, progressive over the last couple months. She has dyspnea which is modestly improved with thoracentesis but getting worse again. Anorexia and occasional difficulty swallowing have contributing to poor p.o. intake. She thinks that dietary sugars have cause abdominal bloating and has avoided any sugars. She has had some problems with diarrhea which are little better now. 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 Oncology care through [facility] now [facility]. is primary caregiver. Smoking Status: Never smoker Do you use any of these nicotine containing products: None Second hand tobacco smoke exposure: Yes How often do you have a drink containing alcohol: never How often do you have six or more drinks on one occasion: Never AUDIT-C Alcohol total score: 0 Non-prescribed substance use: denies use service: No Meds Home Medications and Allergies Home Medication Comments: P.r.n. Imodium, magic mouthwash, nystatin swish and swallow. Allergies Allergy/AdvReac Type Severity Reaction Status Date / Time amoxicillin AdvReac Severe Anaphylaxis Verified 06/22/22 13:01 Exam Narrative: Exam Narrative: She is alert and appears pale and cachectic. She is able to appropriately answe r questions and give her own history. Head is normal. Eyes normal. Oropharynx with thrush noted. Neck is supple without mass or adenopathy. Respirations are clear to auscultation. Cardiovascular: S1, S2, regular rate and rhythm. No murmur gallop or rub. Abdomen: Bowel sounds active. Abdomen is soft with mild epigastric tenderness. Prominent liver edge extends to her mid abdomen and acr oss the midline into her left upper quadrant. Liver is tender. No peritonitis. External genitalia normal. Upper extremities are normal. Lower extremities notable for moderate swelling of the left calf. She has intact pedal pulses she moves all 4 extremities well. Initially extremities cool to touch but after fluid resuscitation she is now perfusing much better. Const: Vital Signs, click to edit/add: Vital Signs - 24 hr 06/22/22 13:01 06/22/22 13:30 06/22/22 13:35 Temperature 100.8 F H 100.3 F H Pulse Rate 126 H Pulse Rate [Pulse Oximeter] 128 H Respiratory Rate 36 H Blood Pressure 115/84 Blood Pressure [Le ft Upper Arm] 116/79 Pulse Oximetry 96 96 Oxygen Delivery Me thod Room Air 06/22/22 13:36 06/22/22 14:00 06/22/22 14:01 Temperature Pulse Rate 125 H 128 H 123 H Pulse Rate [Pulse Oximeter] Respiratory Rate Blood Pressure 119/89 Blood Pressure [Le ft Upper Arm] Pulse Oximetry 96 96 95 Oxygen Delivery Me thod 06/22/22 14:30 06/22/22 14:31 06/22/22 15:00 Temperature Pulse Rate 119 H 122 H 120 H Pulse Rate [Pulse Oximeter] Respiratory Rate Blood Pressure 114/78 Blood Pressure [Le ft Upper Arm] Pulse Oximetry 96 95 97 Oxygen Delivery Me thod 06/22/22 15:01 06/22/22 15:02 06/22/22 15:15 Temperature 99.9 F H Pulse Rate 119 H 119 H 116 H Pulse Rate [Pulse Oximeter] Respiratory Rate Blood Pressure 113/78 Blood Pressure [Le ft Upper Arm] Pulse Oximetry 97 96 95 Oxygen Delivery Me thod 06/22/22 15:30 06/22/22 15:31 06/22/22 15:45 Temperature Pulse Rate 116 H 114 H 110 H Pulse Rate [Pulse Oximeter] Respiratory Rate Blood Pressure 107/74 Blood Pressure [Le ft Upper Arm] Pulse Oximetry 96 95 94 Oxygen Delivery Me thod 06/22/22 16:00 06/22/22 16:02 06/22/22 16:12 Temperature Pulse Rate 120 H 119 H 113 H Pulse Rate [Pulse Oximeter] Respiratory Rate Blood Pressure 114/82 109/73 Blood Pressure [Le ft Upper Arm] Pulse Oximetry 98 95 95 Oxygen Delivery Me thod 06/22/22 16:15 06/22/22 16:17 06/22/22 16:30 Temperature Pulse Rate 116 H 116 H 112 H Pulse Rate [Pulse Oximeter] Respiratory Rate Blood Pressure 122/83 Blood Pressure [Le ft Upper Arm] Pulse Oximetry 95 96 94 Oxygen Delivery Me thod 06/22/22 16:32 06/22/22 16:45 06/22/22 16:47 Temperature Pulse Rate 112 H 111 H 109 H Pulse Rate [Pulse Oximeter] Respiratory Rate Blood Pressure 118/78 106/75 Blood Pressure [Le ft Upper Arm] Pulse Oximetry 95 95 95 Oxygen Delivery Me thod 06/22/22 17:00 06/22/22 17:01 06/22/22 17:25 Temperature Pulse Rate 106 H 105 H 100 Pulse Rate [Pulse Oximeter] Respiratory Rate Blood Pressure 109/80 Blood Pressure [Le ft Upper Arm] Pulse Oximetry 95 95 93 Oxygen Delivery Me thod 06/22/22 17:30 06/22/22 17:32 06/22/22 17:45 Temperature Pulse Rate 96 99 98 Pulse Rate [Pulse Oximeter] Respiratory Rate Blood Pressure 91/48 L Blood Pressure [Le ft Upper Arm] Pulse Oximetry 91 93 93 Oxygen Delivery Me thod 06/22/22 17:46 06/22/22 18:00 06/22/22 18:01 Temperature Pulse Rate 98 96 98 Pulse Rate [Pulse Oximeter] Respiratory Rate Blood Pressure 107/69 106/69 Blood Pressure [Le ft Upper Arm] Pulse Oximetry 93 93 93 Oxygen Delivery Me thod Documenting provider has reviewed patient's vital signs: yes Hospitalist - H&P: Result Labs Labs: Short CBC 06/22/22 Range/Units 14:06 WBC 30.40 H* (4.50-11.00) K/uL Hgb 8.8 L (12.0-16.0) gm/dL Hct 28.3 L (33.0-51.0) % Plt Count 202 (140-440) K/uL BMP 06/22/22 14:06 Sodium 129 L Potassium 4.3 Chloride 99 Carbon Dioxide 25 BUN 20 Creatinine 0.4 L Glucose 194 H Calcium 8.9 Liver Function 06/22/22 Range/Units 14:06 Total Bilirubin 2.8 H (0.1-1.5) mg/dL Direct Bilirubin 1.9 H (0.0-0.5) mg/dL AST 30 (12-35) U/L ALT 33 (4-35) U/L Alkaline Phosphatase 656 H (40-150) U/L Albumin 2.7 L (3.3-5.0) g/dL Urine 06/22/22 Range/Units 14:50 Urine Color Red A (Yellow) Urine Appearance Slightly Cloudy A (Clear) Urine pH 6.0 (5.0-8.5) Ur Specific [place] 1.010 (1.000-1.030) Urine Protein 1+ A (Negative) Urine Glucose (UA) Negative (Negative) Imaging CT Chest/Ab/Pelvis: Radiologist's impression: [address] [address] Diagnostic Imaging Report Patient: Laly Oconnell MR#: [id number] : 1975 Acct:[id number] Loc: ED Service Date: 06/22/[address]: Ordering Physician: Kayode Alvarado M.D. Date of Service: 06/22/22 Procedure(s): CT chest abdomen pelv w con Accession Number(s): [id number] cc: Provider,Not a Local ; Kayode Alvarado M.D.~ For Patients:? As a result of the Cures Act, medical imaging exams and procedure reports are released immediately into your electronic medical record.? You may view this report before your referring provider.? If you have questions, please contact your health care provider. INDICATION: Extensive deep venous thrombosis, evaluate for pulmonary embolism. History of cholangiocarcinoma. TECHNIQUE: CT chest, abdomen, and pelvis acquired with 95 mL Isovue 370 contrast. COMPARISON: CT chest/abdomen/pelvis dated 04/30/2022. FINDINGS: CHEST: Lungs and pleura: Large loculated right pleural effusion, resulting in complete atelectasis of the right lower lobe and near complete atelectasis of the right upper lobe. Partially aerated right middle lobe. Small left pleural effusion. There are scattered foci of ground-glass opacities in the left upper lobe and lingula. There are also subcentimeter pulmonary nodules which have increased in conspicuity since prior study. Heart and vessels: No cardiomegaly, no pericardial effusion. Small filling defects are noted within left lower lobe segmental pulmonary arteries (for example series 9, image 123), consistent with nonocclusive pulmonary emboli. Thyroid and lower neck: Large heterogeneous partially calcified left thyroid nodule, not significantly changed. Mediastinum/smita: No definite lymphadenopathy. Chest wall: No axillary lymphadenopathy. ABDOMEN/PELVIS: Liver: Innumerable ill-defined lesions throughout the liver, significantly increased since prior study, consistent with metastatic disease progression. Large infiltrative lesion in the central aspect of the liver has increased in size as well, consistent with progression of known cholangiocarcinoma. Gallbladder and bile ducts: Additional biliary stents have been placed since prior study. Mild pneumobilia is present. Pancreas: Unremarkable. Spleen: Splenule is noted. New too small to characterize hypodense lesions within the spleen. Adrenal glands: Unremarkable. Kidneys: Kidneys enhance symmetrically, without hydronephrosis. Retroperitoneum: No pathologically enlarged retroperitoneal lymph nodes. Bowel and mesentery: Bowel is not obstructed. Moderate volume ascites, limits evaluation for peritoneal carcinomatosis. Slightly increased size of necrotic lymph nodes in the lex hepatis, consistent with progressive metastases. No pneumoperitoneum. Bladder: Unremarkable for degree of distension. Reproductive organs: Unremarkable. Pelvic lymph nodes: No lymphadenopathy. Vessels: Partially visualized deep venous thrombosis in the left superficial femoral vein (series 13, image 177). Abdominal wall: Cachexia. Bones: Multilevel degenerative changes of the spine. No suspicious/aggressive focal osseous lesion. Stable scattered sclerotic vertebral body lesions, may reflect bone islands. IMPRESSION: 1. Small nonocclusive pulmonary emboli in the left lower lobe segmental pulmonary arteries. 2. Large loculated right pleural effusion, resulting in near complete atelectasis of the right lung. Small left pleural effusion. 3. Scattered foci of ground-glass opacities in the left lung, which may be infectious/inflammatory in etiology. However, some subcentimeter pulmonary nodules have increased in conspicuity, worrisome for pulmonary metastases progression. 4. Interval progression of primary cholangiocarcinoma as well as extensive progression of hepatic metastases. 5. Additional findings suspicious for metastases include new small splenic lesions, increased size of necrotic lex hepatis lymph nodes. 6. Partially visualized deep venous thrombosis in the left superficial femoral vein. Venous US: Radiologist's impression: INDICATION: Leg pain and swelling. TECHNIQUE: Ultrasound venous duplex lower left extremity.? Compression venous exam was performed using bautista-scale, color Doppler, and spectral Doppler analysis. COMPARISON: None. FINDINGS: Deep veins: Extensive areas of occlusive deep venous thrombosis involving the proximal to mid femoral, popliteal, peroneal and posterior tibial veins. Superficial veins: Greater saphenous vein is fully compressible. No popliteal cyst. IMPRESSION: Extensive left lower extremity deep venous thrombosis from the proximal thigh to the distal calf. Assessment and Plan Assessment and plan (1) Sepsis: Problem comment: Source uncertain but biliary/cholecystitis most likely. Possible infection of pleural fluid also possible. Had acute cholecystitis managed medically in April 2022. Broad-spectrum antibiotic. Fluid resuscitation. Ongoing discussion of goals of care. Status: Acute (2) DVT (deep venous thrombosis): Problem comment: Anticoagulation is indicated. Patient are unsure of for they want anticoagulation given previous upper GI bleeding. My current recommendation is that we obtain thoracentesis and then initiate anticoagulation after that and monitor for bleeding. Status: Acute (3) Pulmonary embolism: Problem comment: After long discussion recommend anticoagulation after thoracentesis and monitor for bleeding. Status: Acute (4) Anemia: Problem comment: Likely combination of bone metastases, bone marrow suppression from chemotherapy, bleeding, nutritional problems. Transfuse as needed Status: Acute (5) Debility: Problem comment: Patient is becoming profoundly weak due to affects of cancer and malnutrition. PT and OT to evaluate. Status: Acute (6) Thrush of mouth and esophagus: Problem comment: On treatment with nystatin. Throat feels better but mouth does not feel better. Diflucan Status: Acute (7) Malnutrition: Problem comment: Continue to encourage oral intake. 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 Continue to discuss goals of care Status: Acute (10) History of biliary duct stent placement: Problem comment: X3 Status: Acute (11) Palliative care encounter: Problem comment: Patient now appears to be terminally ill. No good options for treatment of cancer. Now with life-threatening complications including sepsis and DVT/PE. Continue to treat per family's request with ongoing conversation about palliative care. Status: Acute Plan Admit for management of sepsis, DVT/PE, pleural effusion. Ongoing conversation about goals of care. I indicated to the patient and her that she appears to be dying of cholangiocarcinoma. This information had been shared with them by others. They are still hopeful about fenbendazole and not ready for hospice. I discussed the limits of options for treatment in general and specifically at [facility]. They elect to stay here for the treatment I have outlined above 90 minutes spent in evaluation management, 60 minutes in discussing with patient and other providers plan of care.
--- NOTE | 2022-06-22 22:57 | ED.NURSE ---
verbal report given to neftaly BARILLAS
[2022-06-23] MEDS: 0.9 % SODIUM CHLORIDE 250 ml IV (00:01)
[2022-06-23] MEDS: SODIUM CHLORIDE 0.9 % (FLUSH) 10 ML SYRINGE 5 ML IVF (00:01)
[2022-06-23] MEDS: 5 % DEXTROSE IN LAC RINGER'S 1,000 ML 75 ML IV (01:40)
[2022-06-23 03:00] VITALS: BP 100/67; PULSE 85; RESP 20; TEMP 36.5; O2SAT 93
--- NOTE | 2022-06-23 05:39 | PC.NURSE ---
End of Shift: Patient admitted CCU4. Pleasant and cooperative. Afebrile. Rating pain in left leg 3/10 at rest up to 7/10 with activity. Declined PRN pain medication. Up to BSC with SBA.
[2022-06-23 07:08] LABS: Hematocrit 27.4 % (33.0-51.0); Hemoglobin* 8.3 gm/dL (12.0-16.0); Immature Granulocytes Pct Auto 2.2 %; Lymphocytes Percent Auto 2.7 % (20-44); Mean Corpuscular HGB Conc 30 gm/dL (32-36); Mean Corpuscular Hemoglobin 26 pg (26-34); Mean Corpuscular Volume 85 fL (80-100); Monocytes Percent Auto 3.5 % (0.0-11.0); Neutrophils Percent Auto 91.6 % (42.0-72.0); Platelet Count* 141 K/uL (140-440); RDW Coefficient of Variation % 18.9 % (11.5-15.5); Red Blood Count 3.22 m/uL (4.00-5.20); White Blood Count* 20.46 K/uL (4.50-11.00)
[2022-06-23 07:09] LABS: Lactate* 1.1 mmol/L (0.5-1.9)
[2022-06-23 07:12] LABS: Slide Review Reflex No
[2022-06-23 07:50] LABS: Albumin* 2.6 g/dL (3.3-5.0); Chloride* 103 mmol/L (96-114)
[2022-06-23 07:51] LABS: Potassium* 4.1 mmol/L (3.6-5.1); Sodium* 132 mmol/L (135-149)
[2022-06-23 07:53] LABS: Bilirubin Total* 2.3 mg/dL (0.1-1.5); Creatinine* 0.3 mg/dL (0.5-1.5); Est. Creatinine Clearance* 206.61; Estimated Glomerular Filt Rate 130 ml/min
[2022-06-23 07:54] LABS: Alanine Aminotransferase* 30 U/L (4-35); Alkaline Phosphatase* 554 U/L (40-150); Aspartate Amino Transferase* 29 U/L (12-35); Blood Urea Nitrogen* 16 mg/dL (5-24); Calcium* 8.5 mg/dL (8.4-10.6); Carbon Dioxide* 25 mmol/L (20-32); Glucose* 146 mg/dL (60-115); Total Protein* 5.9 g/dL (6.0-8.3)
[2022-06-23 08:10] VITALS: PULSE 97; RESP 20
[2022-06-23 08:10] LABS: C Reactive Protein* 22.8 mg/dL (0.5-1.0)
[2022-06-23] MEDS: dexAMETHasone 4 MG TABLET PO (08:56)
--- NOTE | 2022-06-23 10:39 | P.GSCN_ITS ---
History of Present Illness Consult details Date Seen: 06/23/22 Consult date: 06/23/22 Narrative: Patient presents for evaluation of a metastatic right pleural effusion. She had a thoracentesis performed 2 weeks earlier. Since the procedure she has slowly noticed a decrease in exercise tolerance and increasing shortness of breath. She carries a diagnosis of metastatic cholangiocarcinoma and is followed by [facility] [place] in [place]. She denies any complications with the procedure previously. She does have a history of clots, not currently on anticoagulation. She reports fevers at home and swelling of her left leg, which is what prompted her to come in for evaluation. 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 Oncology care through [facility] [place]. is primary caregiver. Are you following a special diet: Yes (Soft/pureed foods only) Smoking Status: Never smoker Do you use any of these nicotine containing products: None How often do you have a drink containing alcohol: never How often do you have six or more drinks on one occasion: Never AUDIT-C Alcohol total score: 0 Non-prescribed substance use: denies use Caffeine: No service: No Meds Home Medications and Allergies Allergies Allergy/AdvReac Type Severity Reaction Status Date / Time amoxicillin AdvReac Severe Anaphylaxis Verified 06/22/22 13:01 Exam Narrative: Exam Narrative: General: Cachectic in appearance, nontoxic. Respiratory: Maintained on room air, no breath sounds appreciated on the right, breath sounds on left. CV: Tachycardic, well perfused Chest: Right internal jugular port a catheter in place. No overlying redness or concern for infection. Const: Vital Signs, click to edit/add: Vital Signs - 24 hr 06/22/22 13:01 06/22/22 13:30 06/22/22 13:35 Temperature 100.8 F H 100.3 F H Pulse Rate 126 H Pulse Rate [Left P ulse Oximeter] Pulse Rate [Pulse Oximeter] 128 H Respiratory Rate 36 H Blood Pressure 115/84 Blood Pressure [Le ft Upper Arm] 116/79 Blood Pressure [Ri ght Arm] Pulse Oximetry 96 96 Oxygen Delivery Me thod Room Air 06/22/22 13:36 06/22/22 14:00 06/22/22 14:01 Temperature Pulse Rate 125 H 128 H 123 H Pulse Rate [Left P ulse Oximeter] Pulse Rate [Pulse Oximeter] Respiratory Rate Blood Pressure 119/89 Blood Pressure [Le ft Upper Arm] Blood Pressure [Ri ght Arm] Pulse Oximetry 96 96 95 Oxygen Delivery Me thod 06/22/22 14:30 06/22/22 14:31 06/22/22 15:00 Temperature Pulse Rate 119 H 122 H 120 H Pulse Rate [Left P ulse Oximeter] Pulse Rate [Pulse Oximeter] Respiratory Rate Blood Pressure 114/78 Blood Pressure [Le ft Upper Arm] Blood Pressure [Ri ght Arm] Pulse Oximetry 96 95 97 Oxygen Delivery Me thod 06/22/22 15:01 06/22/22 15:02 06/22/22 15:15 Temperature 99.9 F H Pulse Rate 119 H 119 H 116 H Pulse Rate [Left P ulse Oximeter] Pulse Rate [Pulse Oximeter] Respiratory Rate Blood Pressure 113/78 Blood Pressure [Le ft Upper Arm] Blood Pressure [Ri ght Arm] Pulse Oximetry 97 96 95 Oxygen Delivery Me thod 06/22/22 15:30 06/22/22 15:31 06/22/22 15:45 Temperature Pulse Rate 116 H 114 H 110 H Pulse Rate [Left P ulse Oximeter] Pulse Rate [Pulse Oximeter] Respiratory Rate Blood Pressure 107/74 Blood Pressure [Le ft Upper Arm] Blood Pressure [Ri ght Arm] Pulse Oximetry 96 95 94 Oxygen Delivery Me thod 06/22/22 16:00 06/22/22 16:02 06/22/22 16:12 Temperature Pulse Rate 120 H 119 H 113 H Pulse Rate [Left P ulse Oximeter] Pulse Rate [Pulse Oximeter] Respiratory Rate Blood Pressure 114/82 109/73 Blood Pressure [Le ft Upper Arm] Blood Pressure [Ri ght Arm] Pulse Oximetry 98 95 95 Oxygen Delivery Me thod 06/22/22 16:15 06/22/22 16:17 06/22/22 16:30 Temperature Pulse Rate 116 H 116 H 112 H Pulse Rate [Left P ulse Oximeter] Pulse Rate [Pulse Oximeter] Respiratory Rate Blood Pressure 122/83 Blood Pressure [Le ft Upper Arm] Blood Pressure [Ri ght Arm] Pulse Oximetry 95 96 94 Oxygen Delivery Me thod 06/22/22 16:32 06/22/22 16:45 06/22/22 16:47 Temperature Pulse Rate 112 H 111 H 109 H Pulse Rate [Left P ulse Oximeter] Pulse Rate [Pulse Oximeter] Respiratory Rate Blood Pressure 118/78 106/75 Blood Pressure [Le ft Upper Arm] Blood Pressure [Ri ght Arm] Pulse Oximetry 95 95 95 Oxygen Delivery Me thod 06/22/22 17:00 06/22/22 17:01 06/22/22 17:25 Temperature Pulse Rate 106 H 105 H 100 Pulse Rate [Left P ulse Oximeter] Pulse Rate [Pulse Oximeter] Respiratory Rate Blood Pressure 109/80 Blood Pressure [Le ft Upper Arm] Blood Pressure [Ri ght Arm] Pulse Oximetry 95 95 93 Oxygen Delivery Me thod 06/22/22 17:30 06/22/22 17:32 06/22/22 17:45 Temperature Pulse Rate 96 99 98 Pulse Rate [Left P ulse Oximeter] Pulse Rate [Pulse Oximeter] Respiratory Rate Blood Pressure 91/48 L Blood Pressure [Le ft Upper Arm] Blood Pressure [Ri ght Arm] Pulse Oximetry 91 93 93 Oxygen Delivery Me thod 06/22/22 17:46 06/22/22 18:00 06/22/22 18:01 Temperature Pulse Rate 98 96 98 Pulse Rate [Left P ulse Oximeter] Pulse Rate [Pulse Oximeter] Respiratory Rate Blood Pressure 107/69 106/69 Blood Pressure [Le ft Upper Arm] Blood Pressure [Ri ght Arm] Pulse Oximetry 93 93 93 Oxygen Delivery Me thod 06/22/22 23:04 06/22/22 23:34 06/23/22 03:00 Temperature 99.9 F H 97.7 F 97.7 F Pulse Rate Pulse Rate [Left P ulse Oximeter] 87 85 Pulse Rate [Pulse Oximeter] 110 H Respiratory Rate 36 H 16 20 Blood Pressure Blood Pressure [Le ft Upper Arm] 116/79 Blood Pressure [Ri ght Arm] 93/64 100/67 Pulse Oximetry 94 93 Oxygen Delivery Me thod Room Air Room Air 06/22/22 23:34 Temperature Pulse Rate Pulse Rate [Left P ulse Oximeter] Pulse Rate [Pulse Oximeter] Respiratory Rate 20 Blood Pressure Blood Pressure [Le ft Upper Arm] Blood Pressure [Ri ght Arm] Pulse Oximetry 93 Oxygen Delivery Me thod Room Air Results Labs Labs: Abnormal lab results 06/22/22 06/22/22 06/22/22 Range/Units 14:06 14:06 14:06 WBC 30.40 H* (4.50-11.00) K/uL RBC 3.35 L (4.00-5.20) m/uL Hgb 8.8 L (12.0-16.0) gm/dL Hct 28.3 L (33.0-51.0) % MCHC 31 L (32-36) gm/dL RDW Coeff of Honorio 19.0 H (11.5-15.5) % Neut % (Auto) 93.4 H (42.0-72.0) % Lymph % (Auto) 1.4 L (20-44) % Neut # (Auto) 28.40 H (1.7-7.0) K/uL Lymph # (Auto) 0.40 L (0.90-2.90) K/uL [place] # (Auto) 1.40 H (0.00-0.90) K/UL INR (0.91-1.10) APTT (23-33) Seconds D-Dimer Quant (PE/DVT) 3.90 H (0.00-0.50) ug/ml VBG pH (7.32-7.43) VBG pCO2 (40-50) mmHG Sodium 129 L (135-149) mmol/L Creatinine 0.4 L (0.5-1.5) mg/dL Glucose 194 H (60-115) mg/dL Total Bilirubin 2.8 H (0.1-1.5) mg/dL Direct Bilirubin 1.9 H (0.0-0.5) mg/dL Alkaline Phosphatase 656 H (40-150) U/L C-Reactive Protein 21.7 H (0.5-1.0) mg/dL Total Protein (6.0-8.3) g/dL Albumin 2.7 L (3.3-5.0) g/dL Procalcitonin (<0.50) ng/mL Urine Color (Yellow) Urine Appearance (Clear) Urine Protein (Negative) Urine Ketones (Negative) Urine Bilirubin (Negative) Urine Urobilinogen (0.2-1.0) Ur Leukocyte Esterase (Negative) Urine Bacteria (None) 06/22/22 06/22/22 06/22/22 Range/Units 14:06 14:06 14:06 WBC (4.50-11.00) K/uL RBC (4.00-5.20) m/uL Hgb (12.0-16.0) gm/dL Hct (33.0-51.0) % MCHC (32-36) gm/dL RDW Coeff of Honorio (11.5-15.5) % Neut % (Auto) (42.0-72.0) % Lymph % (Auto) (20-44) % Neut # (Auto) (1.7-7.0) K/uL Lymph # (Auto) (0.90-2.90) K/uL [place] # (Auto) (0.00-0.90) K/UL INR 1.47 H (0.91-1.10) APTT 40 H (23-33) Seconds D-Dimer Quant (PE/DVT) (0.00-0.50) ug/ml VBG pH 7.504 H (7.32-7.43) VBG pCO2 34 L (40-50) mmHG Sodium (135-149) mmol/L Creatinine (0.5-1.5) mg/dL Glucose (60-115) mg/dL Total Bilirubin (0.1-1.5) mg/dL Direct Bilirubin (0.0-0.5) mg/dL Alkaline Phosphatase (40-150) U/L C-Reactive Protein (0.5-1.0) mg/dL Total Protein (6.0-8.3) g/dL Albumin (3.3-5.0) g/dL Procalcitonin 3.59 H (<0.50) ng/mL Urine Color (Yellow) Urine Appearance (Clear) Urine Protein (Negative) Urine Ketones (Negative) Urine Bilirubin (Negative) Urine Urobilinogen (0.2-1.0) Ur Leukocyte Esterase (Negative) Urine Bacteria (None) 06/22/22 06/23/22 06/23/22 Range/Units 14:50 06:38 06:38 WBC 20.46 H (4.50-11.00) K/uL RBC 3.22 L (4.00-5.20) m/uL Hgb 8.3 L (12.0-16.0) gm/dL Hct 27.4 L (33.0-51.0) % MCHC 30 L (32-36) gm/dL RDW Coeff of Honorio 18.9 H (11.5-15.5) % Neut % (Auto) 91.6 H (42.0-72.0) % Lymph % (Auto) 2.7 L (20-44) % Neut # (Auto) 18.70 H (1.7-7.0) K/uL Lymph # (Auto) 0.60 L (0.90-2.90) K/uL [place] # (Auto) (0.00-0.90) K/UL INR (0.91-1.10) APTT (23-33) Seconds D-Dimer Quant (PE/DVT) (0.00-0.50) ug/ml VBG pH (7.32-7.43) VBG pCO2 (40-50) mmHG Sodium 132 L (135-149) mmol/L Creatinine 0.3 L (0.5-1.5) mg/dL Glucose 146 H (60-115) mg/dL Total Bilirubin 2.3 H (0.1-1.5) mg/dL Direct Bilirubin (0.0-0.5) mg/dL Alkaline Phosphatase 554 H (40-150) U/L C-Reactive Protein 22.8 H (0.5-1.0) mg/dL Total Protein 5.9 L (6.0-8.3) g/dL Albumin 2.6 L (3.3-5.0) g/dL Procalcitonin (<0.50) ng/mL Urine Color Red A (Yellow) Urine Appearance Slightly Cloudy A (Clear) Urine Protein 1+ A (Negative) Urine Ketones Trace A (Negative) Urine Bilirubin 2+ A (Negative) Urine Urobilinogen 2.0 A (0.2-1.0) Ur Leukocyte Esterase Trace A (Negative) Urine Bacteria Few A (None) Diabetes panel 06/22/22 06/23/22 Range/Units 14:06 06:38 Sodium 129 L 132 L (135-149) mmol/L Potassium 4.3 4.1 (3.6-5.1) mmol/L Chloride 99 103 (96-114) mmol/L Carbon Dioxide 25 25 (20-32) mmol/L BUN 20 16 (5-24) mg/dL Creatinine 0.4 L 0.3 L (0.5-1.5) mg/dL Glucose 194 H 146 H (60-115) mg/dL Calcium 8.9 8.5 (8.4-10.6) mg/dL AST 30 29 (12-35) U/L ALT 33 30 (4-35) U/L Alkaline Phosphatase 656 H 554 H (40-150) U/L Total Protein 6.0 5.9 L (6.0-8.3) g/dL Albumin 2.7 L 2.6 L (3.3-5.0) g/dL Calcium panel 06/22/22 06/23/22 Range/Units 14:06 06:38 Calcium 8.9 8.5 (8.4-10.6) mg/dL Albumin 2.7 L 2.6 L (3.3-5.0) g/dL Pituitary panel 06/22/22 06/23/22 Range/Units 14:06 06:38 Sodium 129 L 132 L (135-149) mmol/L Potassium 4.3 4.1 (3.6-5.1) mmol/L Chloride 99 103 (96-114) mmol/L Carbon Dioxide 25 25 (20-32) mmol/L BUN 20 16 (5-24) mg/dL Creatinine 0.4 L 0.3 L (0.5-1.5) mg/dL Glucose 194 H 146 H (60-115) mg/dL Calcium 8.9 8.5 (8.4-10.6) mg/dL Adrenal panel 06/22/22 06/23/22 Range/Units 14:06 06:38 Sodium 129 L 132 L (135-149) mmol/L Potassium 4.3 4.1 (3.6-5.1) mmol/L Chloride 99 103 (96-114) mmol/L Carbon Dioxide 25 25 (20-32) mmol/L BUN 20 16 (5-24) mg/dL Creatinine 0.4 L 0.3 L (0.5-1.5) mg/dL Glucose 194 H 146 H (60-115) mg/dL Calcium 8.9 8.5 (8.4-10.6) mg/dL Total Bilirubin 2.8 H 2.3 H (0.1-1.5) mg/dL AST 30 29 (12-35) U/L ALT 33 30 (4-35) U/L Alkaline Phosphatase 656 H 554 H (40-150) U/L Total Protein 6.0 5.9 L (6.0-8.3) g/dL Albumin 2.7 L 2.6 L (3.3-5.0) g/dL All other labs normal. Imaging CT scan - chest: report reviewed and image reviewed Assessment and Plan Assessment and plan (1) Pleural effusion: Status: Acute Plan Patient is a 47-year-old female with metastatic cholangiocarcinoma. She presents for metastatic pleural effusion, with hospitalist requesting a therapeutic thoracentesis. Risks and benefits of the procedure were discussed at length with the patient. Risks included, but were not limited to: Infection, bleeding risk of damage to underlying structures. We also reviewed the slightly increased risk of bleeding in her situation given her known liver disease. There is also a plan for anticoagulation following the procedure, given the presence of pulmonary emboli and DVTs found on workup. Will plan to send the fluid for culture to rule out empyema. General Surgery Procedures Thoracentesis Time Out Performed: Yes Imaging guidance used ?: Yes Indication: Pleural effusion Procedure: therapeutic thoracentesis Location: right Local anesthetic used: lidocaine Amount of anesthesia used (mL): 8 Bedside ultrasound used: yes, fluid confirmed and location marked Preparation: sterile prep and drape and 11 blade used to make bree in skin Amount of fluid obtained (mL): 850 Fluid: clear Post Procedure Exam: awake, alert Patient Tolerated Procedure: well Complications: none
[2022-06-23 10:44] VITALS: BMI 17.6
--- NOTE | 2022-06-23 11:06 | CRLHL7_ITS ---
For Patients: As a result of the Century Cures Act, medical imaging exams and procedure reports are released immediately into your electronic medical record. You may view this report before your referring provider. If you have questions, please contact your health care provider. Indication: POST THORACENTESIS Technique: Chest one view Comparison: CT 06/22/2022 IMPRESSION: Decreased amount of right pleural fluid although a large amount of fluid remains. No pneumothorax. Left lung relatively clear with minimal parenchymal densities. Improved aeration within the right perihilar lung. Dictated by Kayode Matthew MD @ 06/23/2022 12:28:13 PM (Electronically Signed)
[2022-06-23 11:23] VITALS: BP 109/89; PULSE 103; RESP 20; O2SAT 97
[2022-06-23 15:15] VITALS: BP 103/54; PULSE 100; RESP 20; O2SAT 92
--- NOTE | 2022-06-23 16:44 | P.IMPN_ITS ---
Progress Note: A&P Assessment and plan (1) Sepsis: Problem details: Source uncertain but possibly urinary (GNR on UC) vs empyema (although no organisms seen on gram stain 06/23/22) vs biliary/cholecystitis. Has h/o cholecystitis treated with antibiotics and biliary stenting and at risk for recurrence. Continue broad-spectrum antibiotics. BC so far negative. Continue daily discussion of goals of care. Status: Acute (2) Pulmonary emboli: Problem details: h/o blood in GI tract after biliary stenting. Discussed risk of GI bleeding with pt and . They have opted to start lovenox for treatment of VTE. Start 60mg subcut q12h Status: Acute (3) DVT (deep venous thrombosis): Problem details: as above Status: Acute (4) Pleural effusion: Problem details: s/p thoracentesis by Dr. Hernandez 06/23/22, gram stain no organisms, likely biliary related. Status: Acute (5) Pulmonary embolism: Problem details: Anticoagulation is indicated. Patient and understand risk GI bleeding due to history of recent upper GI bleeding. They are agreeable to start Lovenox today. Status: Acute (6) DVT (deep venous thrombosis): Problem details: Anticoagulation is indicated. Patient and understand risk GI bleeding due to history of recent upper GI bleeding. They are agreeable to start Lovenox today. 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 At this stage, her prognosis is unlikely to change based on treatment or no treatment. I was clear with patient and about her dismal prognosis and high risk of mortality even with treatment of sepsis and VTE. 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 is bringing in supplements. Continue these. Consult nutrition. Status: Acute (11) Thrush of mouth and esophagus: Problem details: was on treatment with nystatin. Throat feels better but mouth does not feel better. Diflucan started 06/23/22. Status: Acute (12) Anemia: Problem details: Likely combination of bone metastases, bone marrow suppression from chemotherapy, bleeding, nutritional problems. Transfuse as needed. Hgb 8.3 today. No transfusion needed today. Recheck hemoglobin in the morning since will be starting Lovenox today. Status: Acute (13) Debility: Problem details: Patient is becoming profoundly weak due to affects of cancer and malnutrition. PT and OT to evaluate. Status: Acute (14) History of biliary duct stent placement: Problem details: X3 Status: Chronic (15) Palliative care encounter: Problem details: Patient now appears to be terminally ill. No good options for treatment of cancer. Now with life-threatening complications including sepsis and DVT/PE. Continue to treat per family's request with ongoing conversation about palliative care. Status: Acute Time Spent With Patient Total time spent: 60 minutes spent with patient and in discussion as above. Subjective Time Seen by Provider: 12:30 Date Seen: 06/23/22 Interval history: Laly and her are both in the room this afternoon. She had gotten a thoracentesis this morning by Dr. Hernandez. Laly was awake and listened attentively to the conversation. Laly's dominated the conversation. He spoke about many interventions she has had which have included meeting with different oncologist about treatment options, hospitalization at [place], biliary stents, an EGD which saw blood, but no active bleeding, presumed esophageal varices. He noted that she is just starting a week 5 of fenbendazole, a veterinary anti parasitic medicine that is available on the Internet. He kept saying that if she only had 5 days to live, he would want her to come home and celebrate her son's birthday which is this . He would want her to go home with oral antibiotics. Laly expressed uncertainty about what to do. They noted a recent struggle with malnutrition. She also noted that she has be en experiencing some or abdominal distension lately. Her talked about how she had a fever over the weekend, but had been doing so well prior to that. He thought that maybe the elevated white count was due to her body fighting cancer rather than infection and is doubtful that she actually has an infection. He kept asking how do we know that she has an infection? We talked about the difference between sepsis, septicemia, and bacteremia. We had an extensive conversation about treatment options for PE and DVT especially in the setting of history of GI bleeding. We discussed hospitalization verses going home and what treatment options might be available in each place. Overall I spent an hour speaking with them and listening to their concerns, mostly voiced by Laly's . I stressed that Laly's overall prognosis is poor either way and she likely only has weeks to live at the most. I noted that with the severity of the sepsis she came in with, her mortality rate is well above 10%. I left Laly and her to talk about what they would like to do. Several hours later Laly's nurse informed me that she would like to stay and continue being treated for sepsis on the current regimen and to receive Lovenox for treatment of VTE. Exam Narrative: Exam Narrative: General: Extremely thin and cachectic. Appears chronically ill, but sitting with the head of the bed straight up, awake, alert, listening to the conversation and able to contribute on rare occasion. Cardiovascular: Regular rate and rhythm. No murmurs, gallops, or rubs. Chest: No respiratory distress, but notably shallow breathing with mild tachypnea. Diminished breath sounds in the bases especially on the right. Abdomen: Bowel sounds present. Soft, mild distension with prominent liver edge and mild tenderness along the liver. Extremities: 1+ bilateral lower extremity edema. Skin: No jaundice, no pallor, no rashes. Const: Vital Signs, click to edit/add: Vital Signs - 24 hr 06/22/22 16:45 06/22/22 16:47 06/22/22 17:00 Temperature Pulse Rate 111 H 109 H 106 H Pulse Rate [Left P ulse Oximeter] Pulse Rate [Pulse Oximeter] Respiratory Rate Blood Pressure 106/75 Blood Pressure [Le ft Upper Arm] Blood Pressure [Ri ght Arm] Pulse Oximetry 95 95 [facility] 17:01 06/22/22 17:25 06/22/22 17:30 Temperature Pulse Rate 105 H 100 96 Pulse Rate [Left P ulse Oximeter] Pulse Rate [Pulse Oximeter] Respiratory Rate Blood Pressure 109/80 Blood Pressure [Le ft Upper Arm] Blood Pressure [Ri ght Arm] Pulse Oximetry 95 93 91 Oxygen Delivery Ri thod 06/22/22 17:32 06/22/22 17:45 06/22/22 17:46 Temperature Pulse Rate 99 98 98 Pulse Rate [Left P ulse Oximeter] Pulse Rate [Pulse Oximeter] Respiratory Rate Blood Pressure 91/48 L 107/69 Blood Pressure [Le ft Upper Arm] Blood Pressure [Ri ght Arm] Pulse Oximetry 93 93 93 Oxygen Delivery Me thod 06/22/22 18:00 06/22/22 18:01 06/22/22 23:04 Temperature 99.9 F H Pulse Rate 96 98 Pulse Rate [Left P ulse Oximeter] Pulse Rate [Pulse Oximeter] 110 H Respiratory Rate 36 H Blood Pressure 106/69 Blood Pressure [Le ft Upper Arm] 116/79 Blood Pressure [Ri ght Arm] Pulse Oximetry 93 93 Oxygen Delivery Me thod 06/22/22 23:34 06/23/22 03:00 06/22/22 23:34 Temperature 97.7 F 97.7 F Pulse Rate Pulse Rate [Left P ulse Oximeter] 87 85 Pulse Rate [Pulse Oximeter] Respiratory Rate 16 20 20 Blood Pressure Blood Pressure [Le ft Upper Arm] Blood Pressure [Ri ght Arm] 93/64 100/67 Pulse Oximetry 94 93 93 Oxygen Delivery Me thod Room Air Room Air Room Air 06/23/22 11:23 06/23/22 08:10 Temperature Pulse Rate Pulse Rate [Left P ulse Oximeter] 103 H 97 Pulse Rate [Pulse Oximeter] Respiratory Rate 20 20 Blood Pressure Blood Pressure [Le ft Upper Arm] Blood Pressure [Ri ght Arm] 109/89 Pulse Oximetry 97 Oxygen Delivery Me thod Room Air Documenting provider has reviewed patient's vital signs: yes Labs Labs: Laboratory Results - last 24 hr 06/23/22 06/23/22 06/23/22 06:38 06:38 06:38 WBC 20.46 H RBC 3.22 L Hgb 8.3 L Hct 27.4 L MCV 85 MCH 26 MCHC 30 L RDW Coeff of Honorio 18.9 H Plt Count 141 Neut % (Auto) 91.6 H Lymph % (Auto) 2.7 L [place] % (Auto) 3.5 Eos % (Auto) 0.0 Baso % (Auto) 0.0 Neut # (Auto) 18.70 H Lymph # (Auto) 0.60 L [place] # (Auto) 0.70 Eos # (Auto) 0.00 Baso # (Auto) 0.00 Sodium 132 L Potassium 4.1 Chloride 103 Carbon Dioxide 25 BUN 16 Creatinine 0.3 L Estimated Creat Clear 206.61 Estimated GFR 130 Glucose 146 H Lactate 1.1 Calcium 8.5 Total Bilirubin 2.3 H AST 29 ALT 30 Alkaline Phosphatase 554 H C-Reactive Protein 22.8 H Total Protein 5.9 L Albumin 2.6 L
[2022-06-23] MEDS: ENOXAPARIN 60 MG/0.6 ML INJ SUBCUT (18:00)
[2022-06-23 19:00] VITALS: BP 95/64; PULSE 94; RESP 20; TEMP 36.4; O2SAT 94
[2022-06-23 19:21] VITALS: PULSE 100; RESP 20
--- NOTE | 2022-06-23 19:49 | PC.NURSE ---
End of Shift: . Pleasant and cooperative. . Rating pain in left leg 0-3/10 pain meds offered and pt did decline. Port is accessed. . Up is up with SBA. PT and OT worked with her. IV is patent. she is eating, drinking and voiding. she had a thoracentesis today. Pt wanted to stay the night. she was turned and repositioned.
[2022-06-23] MEDS: FLUCONAZOLE 100 MG TABLET 200 MG PO ×2 (21:28)
[2022-06-24] MEDS: 0.9 % SODIUM CHLORIDE 250 ml IV (00:33)
[2022-06-24 00:40] VITALS: BP 91/72; PULSE 89; RESP 18; TEMP 36.7; O2SAT 93
[2022-06-24] MEDS: 5 % DEXTROSE IN LAC RINGER'S 1,000 ML 75 ML IV ×2 (03:16→03:19)
[2022-06-24 03:26] VITALS: BP 102/70; PULSE 85; RESP 18; TEMP 36.6; O2SAT 96
[2022-06-24] MEDS: ENOXAPARIN 60 MG/0.6 ML INJ SUBCUT ×2 (05:48→15:55)
[2022-06-24 06:26] LABS: HCO3 VBG 25 mmol/L (21-28); PCO2 VBG 34 mmHG (40-50); PO2 VBG 58.7 mmHG (25-47)
[2022-06-24 06:33] LABS: Hematocrit 26.4 % (33.0-51.0); Hemoglobin* 8.1 gm/dL (12.0-16.0); Immature Granulocytes Pct Auto 0.4 %; Lymphocytes Percent Auto 2.6 % (20-44); Mean Corpuscular HGB Conc 31 gm/dL (32-36); Mean Corpuscular Hemoglobin 26 pg (26-34); Mean Corpuscular Volume 86 fL (80-100); Monocytes Percent Auto 3.1 % (0.0-11.0); Neutrophils Percent Auto 93.9 % (42.0-72.0); Platelet Count* 114 K/uL (140-440); RDW Coefficient of Variation % 19.1 % (11.5-15.5); Red Blood Count 3.08 m/uL (4.00-5.20); White Blood Count* 14.58 K/uL (4.50-11.00)
[2022-06-24 06:39] LABS: Slide Review Reflex No
[2022-06-24 06:52] LABS: Chloride* 106 mmol/L (96-114)
[2022-06-24 06:53] LABS: Albumin* 2.4 g/dL (3.3-5.0); Potassium* 4.2 mmol/L (3.6-5.1); Sodium* 132 mmol/L (135-149)
[2022-06-24 06:55] LABS: Creatinine* 0.3 mg/dL (0.5-1.5); Est. Creatinine Clearance* 206.61; Estimated Glomerular Filt Rate 130 ml/min
[2022-06-24 06:56] LABS: Alanine Aminotransferase* 31 U/L (4-35); Alkaline Phosphatase* 570 U/L (40-150); Aspartate Amino Transferase* 26 U/L (12-35); Bilirubin Total* 1.8 mg/dL (0.1-1.5); Blood Urea Nitrogen* 15 mg/dL (5-24); Carbon Dioxide* 24 mmol/L (20-32); Glucose* 191 mg/dL (60-115); Total Protein* 5.4 g/dL (6.0-8.3)
[2022-06-24 06:57] LABS: Calcium* 8.1 mg/dL (8.4-10.6)
[2022-06-24 07:00] VITALS: BP 103/73; PULSE 96; RESP 20; TEMP 36.3; O2SAT 96
[2022-06-24 07:09] LABS: Procalcitonin* 1.43 ng/mL (<0.50)
[2022-06-24 07:10] LABS: C Reactive Protein* 17.1 mg/dL (0.5-1.0)
[2022-06-24] MEDS: dexAMETHasone 4 MG TABLET PO (08:35)
[2022-06-24 11:00] VITALS: BP 106/73; PULSE 86; RESP 20; TEMP 36.3; O2SAT 96
--- NOTE | 2022-06-24 11:57 | PC.SOCIAL ---
Pt. will discharge with [facility] for correction, OT, and a [employer] for bathing. Therapies will be delayed one week but the home care nurse will open pt. to home care on Wednesday.
[2022-06-24] MEDS: VANCOMYCIN 750 MG in 0.9 % SODIUM CHLORIDE 250 ml 250 ML 253.75 MG IVPB (13:29)
--- NOTE | 2022-06-24 14:34 | PC.NURSE ---
End of Shift Note: Patient will be discharging home today after getting her dose of vancomycin and patient wants to shower before she leaves. Patient is alert and orientated has offered no complaints today. has been at her bedside most of the day. Will give report to next shift as she will most likely not be ready for discharge until next shift.
[2022-06-24] MEDS: SODIUM CHLORIDE 0.9 % (FLUSH) 10 ML SYRINGE IVF (14:45)
[2022-06-24] MEDS: HEPARIN 500 UNIT/5 ML SYRINGE IVF (14:45)
--- NOTE | 2022-06-24 16:05 | P.DS_ITS ---
DS: Providers Provider Date Seen: 06/24/22 Date of admission: 06/22/22 23:19 Primary care physician: Not a Local Provider Admitting Clinician: Anant Richter MD Consults: 06/22/22 23:19 Consult to Nutrition [CONS] Routine Comment: Reason for consult:: Nutritional Consult Consult to Physical Therapy [CONS] Routine Comment: Reason(s) for PT Consult:: Evaluate and Treat Any Restrictions?:: No Restrictions 06/22/22 23:22 Consult to Occupational Therapy [CONS] Routine Comment: Reason(s) for OT Consult:: Evaluate and Treat Any Restrictions?:: No Restrictions 06/22/22 23:36 Consult to Physician [CONS] Routine Comment: Consulting Provider: Margot Hernandez Has provider been notified: Yes 06/23/22 17:02 Consult to Nutrition [CONS] Routine Comment: Reason for consult:: Nutritional Consult 06/24/22 10:47 Consult to O[employer]ger [CONS] Routine Comment: Reason for Consult:: Discharge Planning Needs Home Health Assessment Attending Physician on discharge: Kajal Kat MD [facility] Date of Discharge: 06/24/22 DS: Diagnosis Discharge Diagnosis (1) 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 Dismal prognosis. I would estimate the patient's life expectancy in days to weeks. Patient and her are aware but will continue to search for alternative less known therapies. Currently on an Internet recommended canine dewormer that they bought from [employer]. Patient is definitely a hospice candidate. Patient is discharging home today in the care of her . All homecare services were recommended and prescribed. (2) Pulmonary emboli: Status: Acute Problem details: Long discussion bedside with Laly and her . Pros and cons of anticoagulation for known PE and DVT were explained. My concern for hemorrhage given her history of ascites, liver disease and anemia is very high. Not treating her known VTE also carries high risk. We discussed the options and the patient and her would like to at least admission early go home on Lovenox 80 mg q.day follow-up with their primary care physician. Typical courses of therapy would be 3 months. May not apply to Laly. (3) DVT (deep venous thrombosis): Status: Acute Problem details: as above (4) Pleural effusion: Status: Acute Problem details: s/p thoracentesis by Dr. Hernandez 06/23/22, gram stain no organisms, likely biliary related. (5) Thrush of mouth and esophagus: Status: Acute Problem details: was on treatment with nystatin. Discharged on Diflucan (6) Malnutrition: Status: Acute Problem details: Severe protein calorie. is bringing in supplements. Continue these. (7) Debility: Status: Acute Problem details: Secondary to end-stage metastatic cholangiocarcinoma DS: Summary Hospital Course Hospital Course: HOSPITALIST DISCHARGE SUMMARY ATTENDING PHYSICIAN: Kajal Kat MD FINAL DIAGNOSIS: DVT/PE Chronic debility, malnutrition secondary to end-stage metastatic cholangiocarcinoma HOSPITAL FOLLOWUP ISSUES: 1. Chronic anticoagulation. Recommended duration on either oral or subcu heparin would be 3 months. Risks of this therapy were thoroughly discussed with patient and . Will discharge on 80 mg subQ low-molecular weight heparin. Patient is to see her PCP within 2 weeks. 2. End-stage cancer, patient is continuing to search for alternative therapies. Currently on a canine dewormer she bought from [employer]. Patient is a hospice candidate but declines referral. REFERRALS WHILE ADMITTED: PT and OT REFERRALS AFTER DISCHARGE: PCP Oncology if she would like to follow-up after last meeting. BRIEF HOSPITAL COURSE: Laly came in with left leg pain, weakness and some mild shortness of breath. She has known end-stage aggressive metastatic cholangiocarcinoma. She has metastasis to the bone. She was diagnosed with a new DVT and pulmonary embolism. She had a thoracentesis done to examine a new pleural effusion. The g stain and initial cultures were negative. This was thought to be related to her chronic liver disease. She was started on anticoagulation for her DVT and PE. Her blood cultures were negative at 48 hours and her UTI showed some mixed results. We are discharging her home a home on oral Septra, oral Diflucan for her thrush and subcutaneous low molecular weight heparin for her DVT and PE. I expressed my significant concerns with her bleeding risk on anticoagulation given her chronic liver disease, known ascites and anemia and poor reserve. I explained the concerns regarding untreated PE and DVT. She chose to pursue anticoagulation. SUBSTANTIVE NOTATIONS ON IMAGING, LAB, MICROBIOLOGY/PATHOLOGY STUDIES: Labs demonstrated that her leukocytosis was downtrending since admission. Her total bilirubin downtrended slightly. As did her CRP. Procalcitonin has down trended nicely. Blood cultures are negative since 2:00 p.m. on 06/22 Urine culture is growing 2 organisms that will be finalized. CT CAP IMPRESSION: 1. Small nonocclusive pulmonary emboli in the left lower lobe segmental pulmonary arteries. 2. Large loculated right pleural effusion, resulting in near complete atelectasis of the right lung. Small left pleural effusion. 3. Scattered foci of ground-glass opacities in the left lung, which may be infectious/inflammatory in etiology. However, some subcentimeter pulmonary nodules have increased in conspicuity, worrisome for pulmonary metastases progression. 4. Interval progression of primary cholangiocarcinoma as well as extensive progression of hepatic metastases. 5. Additional findings suspicious for metastases include new small splenic lesions, increased size of necrotic lex hepatis lymph nodes. 6. Partially visualized deep venous thrombosis in the left superficial femoral vein. DISCHARGE MEDICATIONS: See Reconciled list - SIGNIFICANT CHANGES: Lovenox 80 mg subcutaneous q.day Septra 20 mL of the 200/40/5 mL b.i.d. for 10 days Oral Diflucan REVIEW OF SYSTEMS No new chest pain or dyspnea Pain controlled No voiding difficulties Tolerating diet challenge PHYSICAL EXAM: CONSTITUTIONAL: Cachectic. VITAL SIGNS: see record. HEENT: Normocephalic, atraumatic. PERRL, EOMI, conjunctivae pink, no scleral icterus. Ears and nose externally normal. Pharynx normal. NECK: No JVD. No carotid bruit, no thyromegaly, no adenopathy. CHEST: Rhonchi on the right, clear on the left HEART: S1 and S2 normal. ABDOMEN: Distended. Ascitic fluid appreciated. MUSCULOSKELETAL: No gross joint deformity or swelling. NEURO: Cranial nerves intact. Grossly intact. No asymmetric findings. SKIN: No rashes, petechiae, concerning changes PSYCHIATRIC: Mood euthymic. Tearful at times. DISPOSITION: Home with Time spent on discharge 37 minutes. Status at Discharge Functional status at discharge: uses cane/walker Overall status at discharge: patient is not back to baseline Time Spent with Patient Time attestation: Total time spent providing and/or coordinating discharge services: Exam Const: Vital Signs, click to edit/add: Vital Signs - 24 hr 06/23/22 19:21 06/23/22 19:00 06/24/22 00:40 Temperature 97.6 F Pulse Rate [Left P ulse Oximeter] 100 94 89 Respiratory Rate 20 20 18 Blood Pressure [Ri ght Arm] 95/64 Pulse Oximetry 94 Oxygen Delivery Me thod Room Air 06/24/22 00:40 06/24/22 03:26 06/24/22 07:00 Temperature 98.1 F 97.8 F 97.3 F L Pulse Rate [Left P ulse Oximeter] 89 85 96 Respiratory Rate 18 18 20 Blood Pressure [Ri ght Arm] 91/72 102/70 103/73 Pulse Oximetry 93 96 96 Oxygen Delivery Me thod Room Air Room Air Room Air 06/24/22 07:00 06/24/22 11:00 Temperature 97.4 F L Pulse Rate [Left P ulse Oximeter] 86 Respiratory Rate 20 20 [facility] 106/73 Pulse Oximetry 96 Oxygen Delivery Me thod Room Air DS: Data Data Completed and Pending Labs on day of discharge: Labs from last 24 hours 06/24/22 06/24/22 06/24/22 06:16 06:16 06:16 WBC 14.58 H RBC 3.08 L Hgb 8.1 L Hct 26.4 L MCV 86 MCH 26 MCHC 31 L RDW Coeff of Honorio 19.1 H Plt Count 114 L Neut % (Auto) 93.9 H Lymph % (Auto) 2.6 L [place] % (Auto) 3.1 Eos % (Auto) 0.0 Baso % (Auto) 0.0 Neut # (Auto) 13.70 H Lymph # (Auto) 0.40 L [place] # (Auto) 0.50 Eos # (Auto) 0.00 Baso # (Auto) 0.00 VBG pH 7.470 H VBG pCO2 34 L VBG pO2 58.7 H VBG HCO3 25 Sodium 132 L Potassium 4.2 Chloride 106 Carbon Dioxide 24 BUN 15 Creatinine 0.3 L Estimated Creat Clear 206.61 Estimated GFR 130 Glucose 191 H Calcium 8.1 L Total Bilirubin 1.8 H AST 26 ALT 31 Alkaline Phosphatase 570 H C-Reactive Protein 17.1 H Total Protein 5.4 L Albumin 2.4 L Procalcitonin 1.43 H Preliminary micro results at discharge 06/22/22 14:06 Blood Culture - Preliminary Blood NO GROWTH AFTER 48 HOURS 06/22/22 14:06 Blood Culture - Preliminary Blood NO GROWTH AFTER 48 HOURS 06/22/22 Unknown Urine Culture - Preliminary Urine,Clean Catch Gram negative geraldine Gram positive cocci 06/23/22 11:21 Body Fluid Culture - Preliminary Pleural Fluid NO GROWTH AFTER 24 HOURS Discharge Plan Discharge Disposition: Home w/ Parent or Adult Date of Admission: 06/22/22 23:19 Attending Provider on Discharge: Kajal Kat Consulting Providers: Margot Hernandez Primary Care Provider: Provider,Not a Local Condition: Stable Anticipated Discharge Date/Time: 06/24/22 13:05 Discharge Medications: New fluconazole [Diflucan] 100 mg Tablet 200 mg PO HS Qty: 28 0RF enoxaparin [Lovenox] 60 mg/0.6 mL Syringe 80 mg subcut DAILY Qty: 30 0RF sulfamethoxazole-trimethoprim 200-40 mg/5 mL suspension 20 ml PO BID 10 Days Qty: 800 0RF Continued dexamethasone 2 mg tablet 2 mg PO DAILY Label Comments: TAKE 1 TABLET BY MOUTH ONCE DAILY nystatin 100,000 unit/mL suspension 5 ml buccal QID PRN Label Comments: SWISH AND SWALLOW 5ML 4 TIMES DAILY FOR 7 DAYS, loperamide 2 mg capsule 2 mg PO QID PRN Label Comments: TAKE 1 CAPSULE BY MOUTH 4 TIMES A DAY NEEDED FOR LOOSE STOOL Magic Mouthwash (Lidocaine/Benadryl/Maalox) 120 mL suspension 5 ml PO QID PRNQty: 120 Discharge Orders: Discharge Order (Routine); Ordered 06/24/22 Ordered By: Kajal Kat Patient Education: Sulfamethoxazole/Trimethoprim (By mouth), Fluconazole (By mouth), Enoxaparin (By injection), Pulmonary Embolism (DC), Urinary Tract Infection in Women (DC), Deep Vein Thrombosis (DC) Additional Instructions: 1. UTI. The blood cultures were drawn at 2pm on the so we have 48 hours without growth. That is very good. Start oral (liquid sulfa) tonight and continue twice daily for 10 days. We will call if the blood cultures grow any bacteria. 2. DVT and PE. Inject one syringe of 80mg SQ (just under skin) every morning. I've sent 30 days worth to [facility]; you can speak to your PCP regarding continued dosing. Biggest risk is bleeding with this medication, as we discussed. 3. Diflucan two tabs once a day, can crush if needed. This can hopefully negate the need for nystatin antifungal. 4. Home Health request has been made for all support services to include OT/PT therapy, nursing, bath aide, social work. Activity Level: Activity as Tolerated Discharge Diet: Regular Diet Detail: whatever is tolerated; high protein content suggested Follow Up Appointments: Provider,Not a Local [Primary Care Provider] - 07/15/22 (post hospital f/u with PCP) Maggie Hammond MD [Staff Physician] - 07/02/22 9:00 am Forms: [employer] Info Instructions
--- NOTE | 2022-06-24 17:20 | PC.NURSE ---
Discharge note: Pt changed and ready to discharge at 1500, awaiting paperwork and Lovenox teaching. Port previously deaccessed. Provided written Lovenox step by step instructions including resource to Lovenox website. [employer] demonstrated proper injection technique with pt and her for this evenings dose and they verbalized understanding. Discussed discharge education and follow up appointments. Pt was discharged to home via wheelchair in the care of her at 1645.
== END 2022-06-24 16:45 | disposition home or self-care (01) | DRG 435 ==
LOC: ED 15:11 → MEDSURG 23:00
PROVIDERS: Family Medicine; Admitting Provider Family Medicine; Emergency Provider Family Medicine; Visit Provider Family Medicine
DX: C22.1 Intrahepatic bile duct carcinoma (principal); A41.9 Sepsis, unspecified organism; E43 Unspecified severe protein-calorie malnutrition; I26.99 Other pulmonary embolism without acute cor pulmonale; I81 Portal vein thrombosis; C79.51 Secondary malignant neoplasm of bone; C78.02 Secondary malignant neoplasm of left lung; C77.2 Secondary and unspecified malignant neoplasm of intra-abdominal lymph nodes; J91.0 Malignant pleural effusion; I82.412 Acute embolism and thrombosis of left femoral vein; J98.11 Atelectasis; B37.81 Candidal esophagitis; B37.0 Candidal stomatitis; Z68.1 Body mass index [BMI] 19.9 or less, adult; R64 Cachexia; N39.0 Urinary tract infection, site not specified; D63.8 Anemia in other chronic diseases classified elsewhere; R53.1 Weakness; B96.89 Other specified bacterial agents as the cause of diseases classified elsewhere
CPT/HCPCS: 32555; 36415; 71045; 71260; 74177; 80048; 80053; 80076; 81001; 82140; 82803; 83605; 83735; 83880; 84145; 85025; 85379; 85610; 85730; 86140; 86850; 86900; 86901; 87040; 87070; 87075; 87086; 87186; 87205; 87502; 87634; 87635; 87651; 93971; 97116; 97162; 97165; 97535; 99285; A9270; J0743; J1642; J1650; J3370; J7030; J7050; J7120; Q9967